=== PATIENT | male | born 1940 | race Caucasian/White ===

== ENCOUNTER 2016-12-02 17:52 | Observation (INO) | payer MEDICARE, OTHER ==
[2016-12-02] MEDS ORDERED: Sodium Chloride 0.9% 10 ML Syringe FLUSH PRN ×2 (18:07)
--- NOTE | 2016-12-02 18:17 | EDM.PDOC ---
[id number] Complaint: STROKE Time Seen by Provider: 12/02/16 18:00 Source of Information: Reports: Patient, Family, Old Records History Limitations: Reports: No Limitations - History of Present Illness INITIAL COMMENTS - FREE TEXT/NARRATIVE: Clint is retired, and tended his garden for most of the day in 88+ deg F temps. Family is concerned that he may not have consumed adequate fluids because he seems weak, confused at times, and reporting frontal headache. He went grocery shopping this pm, and returned too weak to carry the groceries into the house. There is a remote hx of HBP, Polio, and UE paresthesias medicated with Plavix over the past 7 years. Headache Pain Score (Numeric/FACES): 5 - Related Data Allergies Allergy/AdvReac Type Severity Reaction Status Date / Time No Known Allergies Allergy Verified 05/04/15 12:52 Home Meds: Home Meds Acetaminophen [Tylenol] 325 mg PO BEDTIME 05/04/15 [History] Aspirin 81 mg PO DAILY 05/04/15 [History] Calcium Carb & Citrate/Vit D3 [Calcium + D3 ER Tablet] 1 each PO DAILY 05/04/15 [History] Citalopram [Citalopram HBr] 20 mg PO BEDTIME 05/04/15 [History] Clopidogrel [Plavix] 75 mg PO DAILY 05/04/15 [History] Ferrous Sulfate 324 mg PO Q48H 05/04/15 [History] Pantoprazole [ProTONIX] 40 mg PO DAILY 05/04/15 [History] Simvastatin [Zocor] 40 mg PO BEDTIME 05/04/15 [History] Verapamil [Verelan] 120 mg PO DAILY 05/04/15 [History] Cyclobenzaprine [Flexeril] 10 mg PO DAILY PRN 12/03/16 [History] Docusate Sodium 750 mg PO BEDTIME 12/03/16 [History] Vitamin B12 6000mcg 6,000 mcg PO DAILY 12/03/16 [History] Losartan [Cozaar] 50 mg PO DAILY #30 tablet 12/04/16 [Rx] Past Medical History Cardiovascular History: Reports: Hypertension Other Gastrointestinal History: ACID REFLUX Other Musculoskeletal History: HX OF POLIO Social & Family History - Tobacco Use Smoking Status *Q: Never Smoker - Recreational Drug Use Recreational Drug Use: No ED ROS GENERAL - Review of Systems Review Of Systems: See Below Constitutional: Reports: Malaise, Weakness, Fatigue HEENT: Reports: No Symptoms Respiratory: Reports: Shortness of Breath (hx of chronic SOB on exertion related to polio) Cardiovascular: Reports: No Symptoms Endocrine: Reports: No Symptoms GI/Abdominal: Reports: No Symptoms : Reports: No Symptoms Musculoskeletal: Reports: Other (chronic weakness in the L lower leg) Skin: Reports: No Symptoms Neurological: Reports: Headache, Pre-Existing Deficit, Weakness (L lower leg) Psychiatric: Reports: No Symptoms Hematologic/Lymphatic: Reports: No Symptoms Immunologic: Reports: No Symptoms ED EXAM, GENERAL - Physical Exam Exam: See Below Exam Limited By: No Limitations General Appearance: Alert, WD/WN, No Apparent Distress, Lethargic, Thin Eye Exam: Bilateral Eye: Normal Inspection, PERRL Ears: Normal External Exam Nose: Normal Inspection Throat/Mouth: Normal Lips, Normal Teeth, Normal Gums, Other (xerostomia, hypophonia) Head: Normocephalic Neck: Normal Inspection, Supple, Non-Tender, Full Range of Motion Respiratory/Chest: Lungs Clear, No Accessory Muscle Use, Chest Non-Tender, Decreased Breath Sounds Cardiovascular: Regular Rate, Rhythm, No Murmur GI/Abdominal: Normal Bowel Sounds, Soft, Non-Tender, No Organomegaly, No Distention, No Mass (Male) Exam: Deferred Rectal (Males) Exam: Deferred Back Exam: Other (scoliosis) Extremities: Normal Range of Motion, Other (decreased muscle mass LLE>RLE) Neurological: Alert, CN II-XII Intact, Confused, Slow to Respond, Abnormal Gait Psychiatric: Flat Affect, Other (mood neutral) Skin Exam: Warm, Dry, Other (increased skin turgor) Lymphatic: No Adenopathy Course - Vital Signs Text/Narrative:: Following assession at the [facility] ED, lab work was obtained, and a peripheral IV was started in the LUE, and NS 1 L was administered over the next hour. He was administered Tylenol 650 mg po for headache sxs. Screening labs were pending at time of change of shift, medical care turned over to Dr Barreto on coming ED physician. Last Recorded V/S: Last Vital Signs Temp 36.3 C 12/04/16 07:27 Pulse 61 12/04/16 07:27 Resp 18 12/04/16 07:27 BP 173/75 H 12/04/16 04:00 Pulse Ox 93 L 12/04/16 07:27 - Orders/Labs/Meds Labs: Laboratory Tests 12/02/16 12/02/16 12/02/16 Range/Units 18:20 18:20 18:20 WBC 7.4 (4.5-12.0) X10-3/uL RBC 4.42 (4.30-5.75) x10(6)uL Hgb 14.1 (11.5-15.5) g/dL Hct 41.2 (30.0-51.3) % MCV 93.3 (80-96) fL MCH 32.0 (27.7-33.6) pg MCHC 34.3 (32.2-35.4) g/dL RDW 12.2 (11.5-15.5) % Plt Count 212 (125-369) X10(3)uL MPV 7.4 (7.4-10.4) fL Neut % (Auto) 80.2 (46-82) % Lymph % (Auto) 13.1 (13-37) % Nicol[place] % (Auto) 6.2 (4-12) % Eos % (Auto) 0 L (1.0-5.0) % Baso % (Auto) 0 (0-2) % Neut # (Auto) 5.9 (1.6-8.3) # Lymph # (Auto) 1.0 (0.6-5.0) # Nicol[place] # (Auto) 0.5 (0.0-1.3) # Eos # (Auto) 0.0 (0.0-0.8) # Baso # (Auto) 0.0 (0.0-0.2) # Sodium 137 (135-145) mmol/L Potassium 4.6 (3.5-5.3) mmol/L Chloride 101 (100-110) mmol/L Carbon Dioxide 28 (23-29) mmol/L BUN 14 (8-23) mg/dL Creatinine 0.6 (0.6-1.3) mg/dL Est Cr Clr Drug Dosing TNP Estimated GFR (MDRD) > 60 (>60) BUN/Creatinine Ratio 23.3 H (9-20) Glucose 106 (80-116) mg/dL Calcium 9.4 (8.6-10.2) mg/dL Total Bilirubin 0.8 (0.1-1.3) mg/dL AST 20 (5-27) IU/L ALT 23 (14-26) IU/L Alkaline Phosphatase 52 L (56-112) IU/L Troponin I < 0.01 L (0.02-0.06) NG/ML Total Protein 7.3 (6.0-8.0) g/dL Albumin 4.5 (3.2-4.6) g/dL Globulin 2.8 g/dL Albumin/Globulin Ratio 1.6 Meds: Medications Discontinued Medications Generic Name Dose Route Start Last Admin Trade Name Freq PRN Reason Stop Dose Admin Acetaminophen 650 mg 12/02/16 18:49 12/02/16 18:51 Tylenol PO 12/02/16 18:50 650 mg NOW ONE Administration Acetaminophen 650 mg 12/03/16 05:45 12/03/16 12:56 Tylenol PO 650 mg Q4H PRN Administration Headache Acetaminophen 325 mg 12/03/16 21:00 12/03/16 20:58 Tylenol PO 325 mg BEDTIME DIANE Administration Aspirin 81 mg 12/03/16 09:00 12/03/16 11:00 Halfprin PO 81 mg DAILY DIANE Administration Citalopram Hydrobromide 20 mg 12/03/16 21:00 12/03/16 20:57 Celexa PO 20 mg BEDTIME DIANE Administration Clopidogrel Bisulfate 75 mg 12/03/16 09:00 12/03/16 11:00 Plavix PO 75 mg DAILY DIANE Administration Cyclobenzaprine HCl 10 mg 12/03/16 10:57 Flexeril PO DAILY PRN MUSCLE SPASMS Docusate Sodium 750 mg 12/03/16 21:00 12/03/16 20:58 Dok PO 750 mg BEDTIME DIANE Administration Ferrous Sulfate 325 mg 12/04/16 09:00 Ferrous Sulfate PO Q48H DIANE Sodium Chloride 1,000 mls @ 999 mls/hr 12/02/16 18:15 12/03/16 18:25 Normal Saline IV 999 mls/hr ASDIRECTED DIANE Administration Sodium Chloride 1,000 mls @ 999 drops/hr 12/02/16 19:25 12/02/16 19:27 Normal Saline IV 12/03/16 10:25 999 drops/hr .BOLUS ONE Administration Sodium Chloride 1,000 mls @ 100 mls/hr 12/02/16 21:00 12/04/16 04:23 Normal Saline IV 100 mls/hr ASDIRECTED DIANE Administration Ketorolac Tromethamine 15 mg 12/02/16 20:52 12/03/16 02:41 Toradol IVPUSH 12/07/16 20:54 15 mg Q6H PRN Administration Headache Ketorolac Tromethamine 15 mg 12/03/16 07:31 12/03/16 12:57 Toradol IVPUSH 12/07/16 20:54 15 mg Q6H PRN Administration Headache Labetalol HCl 10 mg 12/02/16 20:29 12/02/16 20:47 Normodyne IVPUSH 12/02/16 20:30 20 mg ONETIME ONE Administration Protocol Labetalol HCl 20 mg 12/03/16 06:30 12/03/16 06:54 Normodyne IVPUSH 12/03/16 06:31 20 mg ONETIME ONE Administration Protocol Losartan Potassium 25 mg 12/03/16 10:30 12/03/16 11:00 Cozaar PO 25 mg DAILY DIANE Administration Calcium 600mg + D * 1 each 12/03/16 10:45 12/03/16 11:00 Ptom PO 1 each DAILY DIANE Administration Vitamin B12 6000mcg 1 each 12/03/16 09:00 12/03/16 11:00 PO 1 each DAILY DIANE Administration Pantoprazole Sodium 40 mg 12/03/16 11:00 12/04/16 05:28 Protonix PO 40 mg DAILY@0600 DIANE Administration Simvastatin 40 mg 12/03/16 21:00 12/03/16 20:59 Zocor PO 40 mg BEDTIME DIANE Administration Sodium Chloride 10 ml 12/02/16 18:07 12/02/16 18:09 Saline Flush FLUSH 10 ml ASDIRECTED PRN Administration Keep Vein Open Sodium Chloride 10 ml 12/02/16 18:07 Saline Flush FLUSH ASDIRECTED PRN Keep Vein Open Verapamil HCl 120 mg 12/03/16 10:45 12/03/16 11:00 Calan Sr PO 120 mg DAILY DIANE Administration Departure - Departure Time of Disposition: 21:00 Disposition: Refer to Observation Condition: Fair Clinical Impression: Labile hypertension Altered mental state Qualifiers: Altered mental status type: delirium Qualified Code(s): R41.0 - Disorientation , unspecified - Discharge Information - Problem List & Annotations (1) Altered mental state SNOMED Code(s): 958735228 Code(s): R41.82 - ALTERED MENTAL STATUS, UNSPECIFIED Status: Acute Qualifiers: Altered mental status type: delirium Qualified Code(s): R41.0 - Disorientation, unspecified (2) Labile hypertension SNOMED Code(s): 19841202196736282 Code(s): I10 - ESSENTIAL (PRIMARY) HYPERTENSION Status: Acute
[2016-12-02] MEDS: Sodium Chloride 0.9% 1,000 ML IV SCH ×3 (18:32→22:17)
[2016-12-02] MEDS ORDERED: Acetaminophen 325 MG Tab PO ONE (18:49)
[2016-12-02] MEDS ORDERED: Sodium Chloride 0.9% 1,000 ML IV ONE (19:25)
[2016-12-02] MEDS ORDERED: Labetalol 20 MG/4 ML Syringe IVPUSH ONE (20:29)
[2016-12-02] MEDS ORDERED: Ketorolac 30 MG/ML SDV IVPUSH PRN (20:52)
--- NOTE | 2016-12-03 02:59 | PCM.HP ---
H&P History of Present Illness - General Date of Service: 12/03/16 Source of Information: Patient History Limitations: Reports: No Limitations - History of Present Illness Initial Comments - Free Text/Narative: 76-year-old male who came in with headache and confusion. Jose was in his usual state of health until last evening, when he complained of a headache weakness and was noted to be slightly confused by family members. He had been out shopping, and out in the garden with an 88 F temperature. They think that he might also being dehydrated. Headache is severe,unrelenting with no improvement. Was insidious in onset. He has a history of hypertension that is previously well controlled. He was to [facility]. He complains of no fever chills chest pain nausea of vomiting. Headache Pain Score (Numeric/FACES): 5 - Related Data Allergies/Adverse Reactions: Allergies Allergy/AdvReac Type Severity Reaction Status Date / Time No Known Allergies Allergy Verified 05/04/15 12:52 Home Medications: Home Meds Acetaminophen [Tylenol] 325 mg PO ASDIRECTED PRN 05/04/15 [History] Aspirin 81 mg PO DAILY 05/04/15 [History] Calcium Carb & Citrate/Vit D3 [Calcium + D3 ER Tablet] 1 each PO DAILY 05/04/15 [History] Carbidopa/Levodopa [Sinemet 25-100 mg Tablet] 1 each PO BEDTIME 05/04/15 [ History] Citalopram [Celexa] 10 mg PO DAILY 05/04/15 [History] Clopidogrel [Plavix] 75 mg PO DAILY 05/04/15 [History] Cyclobenzaprine [Flexeril] 10 mg PO DAILY 05/04/15 [History] Ferrous Sulfate 324 mg PO DAILY 05/04/15 [History] Losartan [Cozaar] 25 mg PO DAILY 05/04/15 [History] Pantoprazole [Protonix] 40 mg PO DAILY 05/04/15 [History] QuiNINE [Qualaquin] 324 mg PO BEDTIME 05/04/15 [History] Simvastatin [Zocor] 80 mg PO BEDTIME 05/04/15 [History] Verapamil [Verapamil SR (24 Hr)] 120 mg PO DAILY 05/04/15 [History] Vit B12/Pyridoxine/Thiamine [Pv Neuro Jesús Tablet] 1 each PO DAILY 05/04/15 [ History] Past Medical History Cardiovascular History: Reports: Hypertension Gastrointestinal History: Reports: GERD, Other (See Below) Other Gastrointestinal History: ACID REFLUX Musculoskeletal History: Reports: Fracture, Other (See Below) Other Musculoskeletal History: HX OF POLIO Psychiatric History: Reports: Anxiety - Infectious Disease History Infectious Disease History: Reports: Chicken Pox, Measles, Shingles Social & Family History - Family History Musculoskeletal: Reports: Arthritis, Back pain, Chronic, Other (See Below) Other Musculoskeletal Family History: polio since 13 Dermatologic: Reports: Other (See Below) Other Dermatologic Family History: skin flakey and extremely dry to arms,legs, trunk entire body is affected - Tobacco Use Smoking Status *Q: Never Smoker Second Hand Smoke Exposure: No - Caffeine Use Caffeine Use: Reports: Coffee - Recreational Drug Use Recreational Drug Use: No H&P Review of Systems - Review of Systems: Review Of Systems: ROS reveals no pertinent complaints other than HPI. Exam - Exam Exam: See Below - Vital Signs Vital Signs: Last Vital Signs Temp 97.8 F 12/03/16 01:48 Pulse 63 12/03/16 02:44 Resp 20 12/03/16 01:48 BP 150/79 H 12/03/16 02:44 Pulse Ox 94 L 12/03/16 02:44 Weight: 62.188 kg - Exam General: Alert, Oriented, 4 HEENT: PERRLA, Hearing Intact, Mucosa Moist & [place], Nares Patent, Normal Nasal Septum, Posterior Pharynx Clear, Conjunctiva Clear, EOMI, EACs Clear, TMs Clear Neck: Supple, Trachea Midline, 2 Lungs: Clear to Auscultation, Normal Respiratory Effort Cardiovascular: Regular Rate, Regular Rhythm Abdomen: Normal Bowel Sounds, Soft (Male) Exam: No Hernia, Normal Inspection, Normal Prostate, Circumcised Rectal (Males) Exam: Normal Exam, Normal Rectal Tone, Prostate Normal Back Exam: Normal Inspection, Full Range of Motion, NT Extremities: 3, Normal Inspection, 10 Skin: Warm, Dry, Intact Neurological: Cranial Nerves Intact, Reflexes Equal Bilateral Neuro Extensive - Mental Status: Alert, Normal Mood/Affect, Normal Cognition, Disorientation to Time. No: Oriented x3, Memory Intact Neuro Extensive - Motor, Sensory, Reflexes: CN II-XII Intact, Normal Gait, Normal Reflexes Psychiatric: Alert, Normal Affect, Normal Mood. No: Agitated, Suicidal Ideation - Patient Data Lab Results last 24 hrs: Laboratory Results - last 24 hr 12/02/16 Range/Units 21:30 Urine Color Yellow (YELLOW) Urine Appearance Clear (CLEAR) Urine pH 5.0 (5.0-6.5) Ur Specific Burns 1.020 (1.010-1.025) Urine Protein Negative (NEGATIVE) mg/dL Urine Glucose (UA) Normal (NEGATIVE) mg/dL Urine Ketones 15 H (NEGATIVE) mg/dL Urine Occult Blood Negative (NEGATIVE) Urine Nitrite Negative (NEGATIVE) Urine Bilirubin Negative (NEGATIVE) Urine Urobilinogen Normal (NEGATIVE) mg/dL Ur Leukocyte Esterase Negative (NEGATIVE) Urine RBC 0-5 (0) Urine WBC 0-5 (0) Ur Squamous Epith Cells Occasional (NS,R,O) Urine Bacteria Rare H (NS) Result Diagrams: 12/02/16 18:20 12/02/16 18:20 Imaging Impressions last 24 hrs: CT head-No acute EKG INTERPRETATION Rhythm: NSR *Q Meaningful Use (ADM) - VTE *Q VTE Criteria *Q: - Stroke *Q Stroke Criteria *Q: - AMI *Q AMI Criteria *Q: - Problem List (1) Labile hypertension SNOMED Code(s): 10072306188049454 ICD Code: I10 - ESSENTIAL (PRIMARY) HYPERTENSION Status: Acute Current Visit: No (2) Headache SNOMED Code(s): 55436735 ICD Code: R51 - HEADACHE Status: Acute Current Visit: Yes Qualifiers: Headache type: other vascular headache Qualified Code(s): G44.1 - Vascular headache, not elsewhere classified (3) Heat exhaustion SNOMED Code(s): 07218404 ICD Code: T67.5XXA - HEAT EXHAUSTION, UNSPECIFIED, INITIAL ENCOUNTER Status : Acute Current Visit: Yes Qualifiers: Encounter type: initial encounter Qualified Code(s): T67.5XXA - Heat exhaustion, unspecified, initial encounter (4) Altered mental state SNOMED Code(s): 092088693 ICD Code: R41.82 - ALTERED MENTAL STATUS, UNSPECIFIED Status: Acute Current Visit: Yes Qualifiers: Altered mental status type: delirium Qualified Code(s): R41.0 - Disorientation, unspecified Problem List Initiated/Reviewed/Updated: Yes Orders Last 24hrs: Active Orders 24 hr Category Date Time Status Regular Diet [DIET] Diet 12/03/16 Breakfast Active Medication Orders Sodium Chloride (Normal Saline) 1,000 mls @ 999 mls/hr IV ASDIRECTED [facility] Last Admin: 12/02/16 19:27 Dose: 999 mls/hr Infusion: 12/02/16 19:27 Dose: 999 mls/hr Admin: 12/02/16 18:32 Dose: 999 mls/hr Sodium Chloride (Normal Saline) 1,000 mls @ 999 drops/hr IV .BOLUS ONE Stop: 12/03/16 10:25 Last Admin: 12/02/16 19:27 Dose: 999 drops/hr Sodium Chloride (Normal Saline) 1,000 mls @ 100 mls/hr IV ASDIRECTED [facility] Last Admin: 12/02/16 22:17 Dose: 100 mls/hr Ketorolac Tromethamine (Toradol) 15 mg IVPUSH Q6H PRN PRN Reason: Headache Stop: 12/07/16 20:54 Last Admin: 12/03/16 02:41 Dose: 15 mg Sodium Chloride (Saline Flush) 10 ml FLUSH ASDIRECTED PRN PRN Reason: Keep Vein Open Last Admin: 12/02/16 18:09 Dose: 10 ml Assessment/Plan Comment:: We'll admit the patient for rehydration. Also control his blood pressure. restart his BP meds,and use labetalol IV every 6 hours as required to keep his Systolic BP less than 180 mmHg. Toradol was given to try and control his headache. His CT was negative but if his symptoms headache persists we might either repeat another CT or obtain an MRI. Am hoping that this rehydration and once the pressure comes down he is mental status will clear up We'll continue to observe in observation care
[2016-12-03] MEDS ORDERED: Labetalol 20 MG/4 ML Syringe IVPUSH ONE (06:30)
[2016-12-03] MEDS: Acetaminophen 325 MG Tab PO PRN ×2 (06:52→12:56)
[2016-12-03] MEDS ORDERED: Ketorolac 15 MG/ML SDV IVPUSH PRN (07:31)
[2016-12-03] MEDS: Sodium Chloride 0.9% 1,000 ML IV SCH ×2 (08:07→18:25)
[2016-12-03] MEDS ORDERED: Aspirin 81 MG Tab.EC PO SCH (09:00)
[2016-12-03] MEDS ORDERED: VITAMIN B12 PO SCH (09:00)
[2016-12-03] MEDS ORDERED: Clopidogrel 75 MG Tab *PTOM PO SCH (09:00)
[2016-12-03] MEDS ORDERED: Losartan 25 MG Tab *PTOM PO SCH (10:30)
[2016-12-03] MEDS ORDERED: [UNRECOGNIZED DRUG - OTHER] PO SCH (10:45)
[2016-12-03] MEDS ORDERED: CALCIUM 600 MG PO SCH (10:45)
[2016-12-03] MEDS ORDERED: Ferrous Sulfate 325 MG Tab *PTOM PO SCH (10:45)
[2016-12-03] MEDS ORDERED: Verapamil 120 MG Tab.ER *PTOM PO SCH (10:45)
[2016-12-03] MEDS ORDERED: Cyclobenzaprine 10 MG Tab PO PRN (10:57)
[2016-12-03] MEDS: Pantoprazole 40 MG Tab.CR *PTOM PO SCH (11:00)
[2016-12-03] MEDS ORDERED: Citalopram 20 MG Tab *PTOM PO SCH (21:00)
[2016-12-03] MEDS ORDERED: Simvastatin 40 MG Tab *PTOM PO SCH (21:00)
[2016-12-03] MEDS ORDERED: DOCUSATE SODIUM 250 MG PO SCH (21:00)
[2016-12-03] MEDS ORDERED: QUININE 324 MG PO SCH (21:00)
[2016-12-03] MEDS ORDERED: LEVODOPA PO SCH (21:00)
[2016-12-03] MEDS ORDERED: Acetaminophen 325 MG Tab PO SCH (21:00)
[2016-12-03] MEDS ORDERED: CARBIDOPA PO SCH (21:00)
[2016-12-04 04:08] VITALS: BP 173/75
[2016-12-04] MEDS: Sodium Chloride 0.9% 1,000 ML IV SCH (04:23)
[2016-12-04] MEDS: Pantoprazole 40 MG Tab.CR *PTOM PO SCH (05:28)
--- NOTE | 2016-12-04 08:16 | PCM.PN ---
- General Info Date of Service: 12/04/16 Admission Dx/Problem (Free Text): Patient has no complaints today. He denies dizziness, headaches, fevers, fatigue, weakness, chest pain, shortness of breath. He says he feels normal. - Patient Data Vitals - most recent: Last Vital Signs Temp 97.3 F 12/04/16 07:27 Pulse 61 12/04/16 07:27 Resp 18 12/04/16 07:27 BP 173/75 H 12/04/16 04:00 Pulse Ox 93 L 12/04/16 07:27 Weight - most recent: 136 lb 12.8 oz I&O - last 24 hours: Intake & Output 12/03/16 12/04/16 12/04/16 22:59 06:59 14:59 Intake Total 1817 1065 Output Total 1150 Balance 1817 -85 Med Orders - Current: Current Medications Acetaminophen (Tylenol) 650 mg PO Q4H PRN PRN Reason: Headache Last Admin: 12/03/16 12:56 Dose: 650 mg Acetaminophen (Tylenol) 325 mg PO BEDTIME [facility] Last Admin: 12/03/16 20:58 Dose: 325 mg Aspirin (Halfprin) 81 mg PO DAILY [facility] Last Admin: 12/03/16 11:00 Dose: 81 mg Citalopram Hydrobromide (Celexa) 20 mg PO BEDTIME [facility] Last Admin: 12/03/16 20:57 Dose: 20 mg Clopidogrel Bisulfate (Plavix) 75 mg PO DAILY [facility] Last Admin: 12/03/16 11:00 Dose: 75 mg Cyclobenzaprine HCl (Flexeril) 10 mg PO DAILY PRN PRN Reason: MUSCLE SPASMS Docusate Sodium (Dok) 750 mg PO BEDTIME [facility] Last Admin: 12/03/16 20:58 Dose: 750 mg Ferrous Sulfate (Ferrous Sulfate) 325 mg PO Q48H [facility] Sodium Chloride (Normal Saline) 1,000 mls @ 999 mls/hr IV ASDIRECTED [facility] Last Admin: 12/03/16 18:25 Dose: 999 mls/hr Sodium Chloride (Normal Saline) 1,000 mls @ 100 mls/hr IV ASDIRECTED [facility] Last Admin: 12/04/16 04:23 Dose: 100 mls/hr Ketorolac Tromethamine (Toradol) 15 mg IVPUSH Q6H PRN PRN Reason: Headache Stop: 12/07/16 20:54 Last Admin: 12/03/16 12:57 Dose: 15 mg Losartan Potassium (Cozaar) 25 mg PO DAILY [facility] Last Admin: 12/03/16 11:00 Dose: 25 mg Calcium 600mg + D * (Ptom) 1 each PO DAILY [facility] Last Admin: 12/03/16 11:00 Dose: 1 each Vitamin B12 6000mcg 1 each PO DAILY [facility] Last Admin: 12/03/16 11:00 Dose: 1 each Pantoprazole Sodium (Protonix) 40 mg PO DAILY@0600 [facility] Last Admin: 12/04/16 05:28 Dose: 40 mg Simvastatin (Zocor) 40 mg PO BEDTIME [facility] Last Admin: 12/03/16 20:59 Dose: 40 mg Sodium Chloride (Saline Flush) 10 ml FLUSH ASDIRECTED PRN PRN Reason: Keep Vein Open Last Admin: 12/02/16 18:09 Dose: 10 ml Verapamil HCl (Calan Sr) 120 mg PO DAILY [facility] Last Admin: 12/03/16 11:00 Dose: 120 mg Discontinued Medications Acetaminophen (Tylenol) 650 mg PO NOW ONE Stop: 12/02/16 18:50 Last Admin: 12/02/16 18:51 Dose: 650 mg Sodium Chloride (Normal Saline) 1,000 mls @ 999 drops/hr IV .BOLUS ONE Stop: 12/03/16 10:25 Last Admin: 12/02/16 19:27 Dose: 999 drops/hr Ketorolac Tromethamine (Toradol) 15 mg IVPUSH Q6H PRN PRN Reason: Headache Stop: 12/07/16 20:54 Last Admin: 12/03/16 02:41 Dose: 15 mg Labetalol HCl (Normodyne) 10 mg IVPUSH ONETIME ONE PRN Reason: Protocol Stop: 12/02/16 20:30 Last Admin: 12/02/16 20:47 Dose: 20 mg Labetalol HCl (Normodyne) 20 mg IVPUSH ONETIME ONE PRN Reason: Protocol Stop: 12/03/16 06:31 Last Admin: 12/03/16 06:54 Dose: 20 mg Sodium Chloride (Saline Flush) 10 ml FLUSH ASDIRECTED PRN PRN Reason: Keep Vein Open - Exam General: alert, oriented, cooperative Neck: supple Lungs: Clear to auscultation, Normal respiratory effort Cardiovascular: Regular Rate, Regular Rhythm, No Murmurs Extremities: no edema Neurological: no new focal deficit Psy/Mental Status: alert, normal affect, normal mood - Problem List & Annotations (1) Altered mental state SNOMED Code(s): 458632465 Code(s): R41.82 - ALTERED MENTAL STATUS, UNSPECIFIED Status: Acute Current Visit: Yes Qualifiers: Altered mental status type: delirium Qualified Code(s): R41.0 - Disorientation, unspecified (2) Heat exhaustion SNOMED Code(s): 70774166 Code(s): T67.5XXA - HEAT EXHAUSTION, UNSPECIFIED, INITIAL ENCOUNTER Status : Acute Current Visit: Yes Qualifiers: Encounter type: initial encounter Qualified Code(s): T67.5XXA - Heat exhaustion, unspecified, initial encounter (3) Labile hypertension SNOMED Code(s): 26101202039043532 Code(s): I10 - ESSENTIAL (PRIMARY) HYPERTENSION Status: Acute Current Visit: No - Problem List Review Problem List Initiated/Reviewed/Updated: Yes - My Orders Last 24 Hours: My Active Orders 12/04/16 08:14 Ready for Discharge [RC] PER UNIT ROUTINE - Plan Plan:: 1. Discharge home. 2. Increase losartan from 25-50 mg a day. 3. Recheck with Dr. Lanre Chand in 7-10 days.
--- NOTE | 2016-12-04 08:23 | PCM.DCSUM1 ---
Discharge Summary - Hospital Course Free Text/Narrative:: Patient's CT scan was read as normal. He was admitted with aggressive rehydration, cooling, Toradol for headache and labetalol for his elevated blood pressure. Patients blood pressure improved as did his headache. By the morning of 12/04 he was completely asymptomatic. Suspect he had some heating session. Labs relatively normal. Blood pressure came down but still is high. I will increase his losartan from 25 mg to 50 mg. He will have his daughter checked his blood pressure to make sure it does not get too low. He will followup with Dr. Chand 7-10 days Brief History: 76-year-old male who came in with headache and confusion. Jose was in his usual state of health until last evening, when he complained of a headache weakness and was noted to be slightly confused by family members. He had been out shopping, and out in the garden with an 88 F temperature. They think that he might also being dehydrated. Headache is severe,unrelenting with no improvement. Was insidious in onset. He has a history of hypertension that is previously well controlled. He was to [facility]. He complains of no fever chills chest pain nausea of vomiting. - Discharge Data Discharge Date: 12/04/16 Discharge Disposition: Home, Self-Care 01 Condition: Good - Discharge Diagnosis/Problem(s) (1) Altered mental state SNOMED Code(s): 339077619 ICD Code: R41.82 - ALTERED MENTAL STATUS, UNSPECIFIED Status: Acute Current Visit: Yes Qualifiers: Altered mental status type: delirium Qualified Code(s): R41.0 - Disorientation, unspecified (2) Heat exhaustion SNOMED Code(s): 24660039 ICD Code: T67.5XXA - HEAT EXHAUSTION, UNSPECIFIED, INITIAL ENCOUNTER Status : Acute Current Visit: Yes Qualifiers: Encounter type: initial encounter Qualified Code(s): T67.5XXA - Heat exhaustion, unspecified, initial encounter (3) Labile hypertension SNOMED Code(s): 31757015772394752 ICD Code: I10 - ESSENTIAL (PRIMARY) HYPERTENSION Status: Acute Current Visit: No - Patient Instructions Diet: Heart Healthy Diet Activity: As Tolerated Driving: May Drive Today Showering/Bathing: May Shower Notify Provider of: Fever, Increased Pain, Swelling and Redness, Drainage, Nausea and/or Vomiting Other/Special Instructions: 1. Recheck with Dr. Lanre Chand and 7-10 days. - Discharge Plan Prescriptions/Med Rec: Losartan [Cozaar] 50 mg PO DAILY #30 tablet Home Medications: Home Meds Acetaminophen [Tylenol] 325 mg PO BEDTIME 05/04/15 [History] Aspirin 81 mg PO DAILY 05/04/15 [History] Calcium Carb & Citrate/Vit D3 [Calcium + D3 ER Tablet] 1 each PO DAILY 05/04/15 [History] Citalopram [Citalopram HBr] 20 mg PO BEDTIME 05/04/15 [History] Clopidogrel [Plavix] 75 mg PO DAILY 05/04/15 [History] Ferrous Sulfate 324 mg PO Q48H 05/04/15 [History] Pantoprazole [ProTONIX] 40 mg PO DAILY 05/04/15 [History] Simvastatin [Zocor] 40 mg PO BEDTIME 05/04/15 [History] Verapamil [Verelan] 120 mg PO DAILY 05/04/15 [History] Cyclobenzaprine [Flexeril] 10 mg PO DAILY PRN 12/03/16 [History] Docusate Sodium 750 mg PO BEDTIME 12/03/16 [History] Vitamin B12 6000mcg 6,000 mcg PO DAILY 12/03/16 [History] Losartan [Cozaar] 50 mg PO DAILY #30 tablet 12/04/16 [Rx] Forms: ED Department Discharge Referrals: Lanre Chand MD [Primary Care Provider] - - Discharge Summary/Plan Comment DC Time >30 min.: No - Patient Data Vitals - Most Recent: Last Vital Signs Temp 97.3 F 12/04/16 07:27 Pulse 61 12/04/16 07:27 Resp 18 12/04/16 07:27 BP 173/75 H 12/04/16 04:00 Pulse Ox 93 L 12/04/16 07:27 Weight - Most Recent: 136 lb 12.8 oz I&O - Last 24 hours: Intake & Output 12/03/16 12/04/16 12/04/16 22:59 06:59 14:59 Intake Total 1817 1065 Output Total 1150 Balance 1817 -85 Med Orders - Current: Current Medications Acetaminophen (Tylenol) 650 mg PO Q4H PRN PRN Reason: Headache Last Admin: 06/08/17 12:56 Dose: 650 mg Acetaminophen (Tylenol) 325 mg PO BEDTIME [facility] Last Admin: 12/03/16 20:58 Dose: 325 mg Aspirin (Halfprin) 81 mg PO DAILY [facility] Last Admin: 12/03/16 11:00 Dose: 81 mg Citalopram Hydrobromide (Celexa) 20 mg PO BEDTIME [facility] Last Admin: 12/03/16 20:57 Dose: 20 mg Clopidogrel Bisulfate (Plavix) 75 mg PO DAILY [facility] Last Admin: 12/03/16 11:00 Dose: 75 mg Cyclobenzaprine HCl (Flexeril) 10 mg PO DAILY PRN PRN Reason: MUSCLE SPASMS Docusate Sodium (Dok) 750 mg PO BEDTIME [facility] Last Admin: 12/03/16 20:58 Dose: 750 mg Ferrous Sulfate (Ferrous Sulfate) 325 mg PO Q48H [facility] Sodium Chloride (Normal Saline) 1,000 mls @ 999 mls/hr IV ASDIRECTED [facility] Last Admin: 12/03/16 18:25 Dose: 999 mls/hr Sodium Chloride (Normal Saline) 1,000 mls @ 100 mls/hr IV ASDIRECTED [facility] Last Admin: 12/04/16 04:23 Dose: 100 mls/hr Ketorolac Tromethamine (Toradol) 15 mg IVPUSH Q6H PRN PRN Reason: Headache Stop: 12/07/16 20:54 Last Admin: 12/03/16 12:57 Dose: 15 mg Losartan Potassium (Cozaar) 25 mg PO DAILY [facility] Last Admin: 12/03/16 11:00 Dose: 25 mg Calcium 600mg + D * (Ptom) 1 each PO DAILY [facility] Last Admin: 12/03/16 11:00 Dose: 1 each Vitamin B12 6000mcg 1 each PO DAILY [facility] Last Admin: 12/03/16 11:00 Dose: 1 each Pantoprazole Sodium (Protonix) 40 mg PO DAILY@0600 [facility] Last Admin: 12/04/16 05:28 Dose: 40 mg Simvastatin (Zocor) 40 mg PO BEDTIME [facility] Last Admin: 12/03/16 20:59 Dose: 40 mg Sodium Chloride (Saline Flush) 10 ml FLUSH ASDIRECTED PRN PRN Reason: Keep Vein Open Last Admin: 12/02/16 18:09 Dose: 10 ml Verapamil HCl (Calan Sr) 120 mg PO DAILY [facility] Last Admin: 12/03/16 11:00 Dose: 120 mg Discontinued Medications Acetaminophen (Tylenol) 650 mg PO NOW ONE Stop: 12/02/16 18:50 Last Admin: 12/02/16 18:51 Dose: 650 mg Sodium Chloride (Normal Saline) 1,000 mls @ 999 drops/hr IV .BOLUS ONE Stop: 12/03/16 10:25 Last Admin: 12/02/16 19:27 Dose: 999 drops/hr Ketorolac Tromethamine (Toradol) 15 mg IVPUSH Q6H PRN PRN Reason: Headache Stop: 12/07/16 20:54 Last Admin: 12/03/16 02:41 Dose: 15 mg Labetalol HCl (Normodyne) 10 mg IVPUSH ONETIME ONE PRN Reason: Protocol Stop: 12/02/16 20:30 Last Admin: 12/02/16 20:47 Dose: 20 mg Labetalol HCl (Normodyne) 20 mg IVPUSH ONETIME ONE PRN Reason: Protocol Stop: 12/03/16 06:31 Last Admin: 12/03/16 06:54 Dose: 20 mg Sodium Chloride (Saline Flush) 10 ml FLUSH ASDIRECTED PRN PRN Reason: Keep Vein Open *Q Meaningful Use (DIS) - VTE *Q VTE Criteria *Q: - Stroke *Q Stroke Criteria *Q: - AMI *Q AMI Criteria *Q:
[2016-12-04] MEDS ORDERED: Ferrous Sulfate 325 MG Tab *PTOM PO SCH (09:00)
== END 2016-12-04 13:00 | disposition home or self-care (01) ==
LOC: FB.ED 17:52 → FB.MS 20:55
PROVIDERS: ADMIT Family Medicine; ATTEND Family Medicine
DX: R41.0 Disorientation, unspecified (principal); T67.5XXA Heat exhaustion, unspecified, initial encounter; I10 Essential (primary) hypertension; G44.1 Vascular headache, not elsewhere classified; Z79.82 Long term (current) use of aspirin; Z79.899 Other long term (current) drug therapy; K21.9 Gastro-esophageal reflux disease without esophagitis; F41.9 Anxiety disorder, unspecified
CPT/HCPCS: 36415; 70450; 80053; 81001; 84484; 85025; 93005; 96361; 96374; 96375; 96376; 99285; A9270; G0378; J1885; J7040; J7050; 99217; 99218

== ENCOUNTER 2018-11-23 07:22 | Inpatient (IN) | payer MEDICARE ==
[2018-11-23] MEDS ORDERED: Sodium Chloride 0.9% 500 ML IV ONE (07:52)
[2018-11-23] MEDS ORDERED: Albuterol/Ipratropium 3.0-0.5 MG/3 ML Neb Soln NEB ONE (08:01)
--- NOTE | 2018-11-23 08:04 | EDM.PDOC ---
ED HPI GENERAL MEDICAL PROBLEM - General Chief Complaint: Respiratory Problem Stated Complaint: SOB,WEAKNESS Time Seen by Provider: 11/23/18 08:02 Source of Information: Reports: Patient History Limitations: Reports: No Limitations - History of Present Illness INITIAL COMMENTS - FREE TEXT/NARRATIVE: Presents with cough, sob, generalized weakness and dizziness x 2-3 days. Had chills yesterday, but no fever. Denies chest pain at this time. No h/o CAD. Severity: Moderate Associated Symptoms: Reports: Shortness of Breath, Other (Nausea) Generalized Pain Score (Numeric/FACES): 4 - Related Data Allergies Allergy/AdvReac Type Severity Reaction Status Date / Time No Known Allergies Allergy Verified 11/23/18 07:42 Home Meds: Home Meds Acetaminophen [Tylenol] 325 mg PO BEDTIME 05/04/15 [History] Aspirin 81 mg PO DAILY 05/04/15 [History] Calcium Carb & Citrate/Vit D3 [Calcium + D3 ER Tablet] 1 each PO DAILY 05/04/15 [History] Clopidogrel [Plavix] 75 mg PO DAILY 05/04/15 [History] Ferrous Sulfate 324 mg PO Q48H 05/04/15 [History] Pantoprazole [ProTONIX] 40 mg PO DAILY 05/04/15 [History] Simvastatin [Zocor] 40 mg PO BEDTIME 05/04/15 [History] Verapamil [Verelan] 120 mg PO DAILY 05/04/15 [History] Docusate Sodium 750 mg PO BEDTIME 12/03/16 [History] Vitamin B12 6000mcg 6,000 mcg PO DAILY 12/03/16 [History] Losartan [Cozaar] 50 mg PO DAILY #30 tablet 12/04/16 [Rx] Albuterol [Ventolin HFA] 1 - 2 puff INH Q4H PRN 11/23/18 [History] Gabapentin [Neurontin] 300 mg PO BEDTIME 11/23/18 [History] Sertraline [Zoloft] 50 mg PO DAILY 11/23/18 [History] Past Medical History Cardiovascular History: Reports: Hypertension. Denies: CAD Respiratory History: Denies: Asthma, COPD Gastrointestinal History: Reports: GERD, Other (See Below) Other Gastrointestinal History: ACID REFLUX Musculoskeletal History: Reports: Arthritis, Fracture, Other (See Below) Other Musculoskeletal History: HX OF POLIO Psychiatric History: Reports: Anxiety - Infectious Disease History Infectious Disease History: Reports: Chicken Pox, Measles, Shingles Social & Family History - Family History Musculoskeletal: Reports: Arthritis, Back pain, Chronic, Other (See Below) Other Musculoskeletal Family History: polio since 13 Dermatologic: Reports: Other (See Below) Other Dermatologic Family History: skin flakey and extremely dry to arms,legs, trunk entire body is affected - Tobacco Use Smoking Status *Q: Never Smoker - Caffeine Use Caffeine Use: Reports: Coffee - Recreational Drug Use Recreational Drug Use: No - Living Situation & Occupation Living situation: Reports: Alone ED ROS GENERAL - Review of Systems Review Of Systems: ROS reveals no pertinent complaints other than HPI. ED EXAM, GENERAL - Physical Exam Exam: See Below Exam Limited By: No Limitations General Appearance: Alert, WD/WN, No Apparent Distress Ears: Normal External Exam Nose: Normal Inspection Throat/Mouth: No Airway Compromise, Other (oropharynx dry) Head: Atraumatic, Normocephalic Neck: Full Range of Motion Respiratory/Chest: No Respiratory Distress, Rhonchi Cardiovascular: Regular Rate, Rhythm, No Murmur GI/Abdominal: Normal Bowel Sounds, Soft, Non-Tender Extremities: Normal Range of Motion, Non-Tender Neurological: Alert, Normal Cognition, No Motor/Sensory Deficits Skin Exam: Warm, Dry, Intact EKG INTERPRETATION EKG Date: 11/23/18 Time: 07:52 Rhythm: NSR Rate (Beats/Min): 80 [place]: LAD-Left [place] Deviation P-Wave: Present QRS: Other (LVH) ST-T: Elevated (anterior, due to LVH (no change 12/12/16)) QT: Normal Comparison: No Change Course - Vital Signs Last Recorded V/S: Last Vital Signs Temp 36.4 C 11/23/18 07:22 Pulse 82 11/23/18 09:07 Resp 18 11/23/18 09:07 BP 139/62 11/23/18 09:07 Pulse Ox 95 11/23/18 09:07 Vital Signs - 24 hr 11/23/18 11/23/18 11/23/18 07:22 08:18 08:22 Temperature [ 36.4 C Oral] Pulse, 91 72 87 Peripheral [ Right Radial] Respiratory 22 H 20 Rate Blood Pressure 98/66 105/56 L [Left Upper Arm ] O2 Sat by Pulse 86 L 95 Oximetry O2 Sat by Pulse 92 L 95 91 L Oximetry [ Nasal Cannula] 11/23/18 09:07 Temperature [ Oral] Pulse, 82 Peripheral [ Right Radial] Respiratory 18 Rate Blood Pressure 139/62 [Left Upper Arm ] O2 Sat by Pulse 94 L Oximetry O2 Sat by Pulse 95 Oximetry [ Nasal Cannula] - Orders/Labs/Meds Orders: Active Orders 24 hr Category Date Time Status Admission Status [Patient Status] [ADT] Routine ADT 11/23/18 10:01 Active EKG Documentation Completion [RC] ASDIRECTED Care 11/23/18 07:54 Active RT Aerosol Therapy [RC] ASDIRECTED Care 11/23/18 08:01 Active Ang Chest [CT] Stat Exams 11/23/18 09:28 Taken CXR [Chest 1V Frontal] [CR] Stat Exams 11/23/18 07:53 Taken CULTURE BLOOD [BC] Urgent Lab 11/23/18 08:05 Received CULTURE BLOOD [BC] Urgent Lab 11/23/18 08:10 Received UA W/MICROSCOPIC [URIN] Stat Lab 11/23/18 Ordered Sodium Chloride 0.9% [Normal Saline] 1,000 ml Med 11/23/18 09:15 Active IV ASDIRECTED Sodium Chloride 0.9% [Saline Flush] Med 11/23/18 07:52 Active 10 ml FLUSH ASDIRECTED PRN Blood Culture x2 Reflex Set [OM.PC] Urgent Oth 11/23/18 07:53 Ordered Saline Lock Insert [OM.PC] Routine Oth 11/23/18 07:52 Ordered Code Status [Resuscitation Status] Stat Resus Stat 11/23/18 08:00 Ordered EKG 12 Lead [EK] Stat Ther 11/23/18 07:54 Ordered Medication Orders Sodium Chloride (Normal Saline) 1,000 mls @ 100 mls/hr IV ASDIRECTED DIANE Last Admin: 11/23/18 09:07 Dose: 100 mls/hr Sodium Chloride (Saline Flush) 10 ml FLUSH ASDIRECTED PRN PRN Reason: Keep Vein Open Last Admin: 11/23/18 08:08 Dose: 10 ml Labs: Laboratory Tests 11/23/18 11/23/18 11/23/18 Range/Units 08:10 08:10 08:10 WBC 10.8 (4.5-12.0) X10-3/uL RBC 4.45 (4.30-5.75) x10(6)uL Hgb 14.0 (13.5-17.8) g/dL Hct 41.7 (30.0-51.3) % MCV 93.7 (80-96) fL MCH 31.4 (27.7-33.6) pg MCHC 33.6 (32.2-35.4) g/dL RDW 12.9 (11.5-15.5) % Plt Count 221 (125-369) X10(3)uL MPV 7.1 L (7.4-10.4) fL Add Manual Diff Yes Neutrophils % (Manual) 80 (46-82) % Band Neutrophils % 3 (0-6) % Lymphocytes % (Manual) 9 L (13-37) % Monocytes % (Manual) 8 (4-12) % PT 10.3 (8.7-11.1) INR 1.06 (0.89-1.13) D-Dimer, Quantitative (0.0-0.59) mg/LFEU Sodium 139 (135-145) mmol/L Potassium 4.1 (3.5-5.3) mmol/L Chloride 102 (100-110) mmol/L Carbon Dioxide 29 (21-32) mmol/L BUN 15 (7-18) mg/dL Creatinine 0.7 (0.70-1.30) mg/dL Est Cr Clr Drug Dosing 76.14 mL/min Estimated GFR (MDRD) > 60 (>60) BUN/Creatinine Ratio 21.4 H (9-20) Glucose 87 (80-116) mg/dL Lactic Acid (0.4-2.2) mmol/L Calcium 9.1 (8.6-10.2) mg/dL Total Bilirubin 1.0 (0.1-1.3) mg/dL AST 30 H (5-25) IU/L ALT 30 (12-36) U/L Alkaline Phosphatase 68 (56-112) IU/L Troponin I (<0.017-0.056) ng/mL Total Protein 6.7 (6.0-8.0) g/dL Albumin 3.3 (3.2-4.6) g/dL Globulin 3.4 g/dL Albumin/Globulin Ratio 1.0 11/23/18 11/23/18 11/23/18 Range/Units 08:10 08:10 08:10 WBC (4.5-12.0) X10-3/uL RBC (4.30-5.75) x10(6)uL Hgb (13.5-17.8) g/dL Hct (30.0-51.3) % MCV (80-96) fL MCH (27.7-33.6) pg MCHC (32.2-35.4) g/dL RDW (11.5-15.5) % Plt Count (125-369) X10(3)uL MPV (7.4-10.4) fL Add Manual Diff Neutrophils % (Manual) (46-82) % Band Neutrophils % (0-6) % Lymphocytes % (Manual) (13-37) % Monocytes % (Manual) (4-12) % PT (8.7-11.1) INR (0.89-1.13) D-Dimer, Quantitative 0.91 H (0.0-0.59) mg/LFEU Sodium (135-145) mmol/L Potassium (3.5-5.3) mmol/L Chloride (100-110) mmol/L Carbon Dioxide (21-32) mmol/L BUN (7-18) mg/dL Creatinine (0.70-1.30) mg/dL Est Cr Clr Drug Dosing mL/min Estimated GFR (MDRD) (>60) BUN/Creatinine Ratio (9-20) Glucose (80-116) mg/dL Lactic Acid 1.0 (0.4-2.2) mmol/L Calcium (8.6-10.2) mg/dL Total Bilirubin (0.1-1.3) mg/dL AST (5-25) IU/L ALT (12-36) U/L Alkaline Phosphatase (56-112) IU/L Troponin I < 0.017 L (<0.017-0.056) ng/mL Total Protein (6.0-8.0) g/dL Albumin (3.2-4.6) g/dL Globulin g/dL Albumin/Globulin Ratio Meds: Medications Generic Name Dose Route Start Last Admin Trade Name Freq PRN Reason Stop Dose Admin Sodium Chloride 1,000 mls @ 100 mls/hr 11/23/18 09:15 11/23/18 09:07 Normal Saline IV 100 mls/hr ASDIRECTED DIANE Administration Sodium Chloride 10 ml 11/23/18 07:52 11/23/18 08:08 Saline Flush FLUSH 10 ml ASDIRECTED PRN Administration Keep Vein Open Discontinued Medications Generic Name Dose Route Start Last Admin Trade Name Freq PRN Reason Stop Dose Admin Albuterol/Ipratropium 3 ml 11/23/18 08:01 11/23/18 08:11 Duoneb 3.0-0.5 Mg/3 Ml NEB 11/23/18 08:02 3 ml ONETIME ONE Administration Sodium Chloride 500 mls @ 500 mls/hr 11/23/18 07:52 11/23/18 08:08 Normal Saline IV 11/23/18 08:51 500 mls/hr .BOLUS ONE Administration Iopamidol 75 ml 11/23/18 09:23 11/23/18 09:24 Isovue-370 (76%) IV 11/23/18 09:24 75 ml ONETIME ONE Administration - Radiology Interpretation Free Text/Narrative:: CTA Chest: Multifocal pneumonia, no pulmonary emboli (per Dr. Wilson). - Re-Assessments/Exams Free Text/Narrative Re-Assessment/Exam: 11/23/18 10:10 BP improved to 139/62 after 500ml NS bolus. Sa02 improved to 91% RA after Duoneb. 11/23/18 10:12 Dr. Solorio agrees to admit patient to [facility]. Departure - Departure Time of Disposition: 10:11 Disposition: Admitted As Inpatient 64 Condition: Fair Clinical Impression: Multifocal pneumonia Dyspnea Qualifiers: Dyspnea type: shortness of breath Qualified Code(s): R06.02 - Shortness of breath; R06.00 - Dyspnea, unspecified; R06.01 - Orthopnea - Discharge Information *PRESCRIPTION DRUG MONITORING PROGRAM REVIEWED*: No *COPY OF PRESCRIPTION DRUG MONITORING REPORT IN PATIENT CASE: Not Applicable Referrals: Lanre Chand MD [Primary Care Provider] - Forms: ED Department Discharge - My Orders Last 24 Hours: My Active Orders 11/23/18 UA W/MICROSCOPIC [URIN] Stat 11/23/18 07:52 Sodium Chloride 0.9% [Saline Flush] 10 ml FLUSH ASDIRECTED PRN Saline Lock Insert [OM.PC] Routine 11/23/18 07:53 CXR [Chest 1V Frontal] [CR] Stat Blood Culture x2 Reflex Set [OM.PC] Urgent 11/23/18 07:54 EKG Documentation Completion [RC] ASDIRECTED EKG 12 Lead [EK] Stat 11/23/18 08:00 Code Status [Resuscitation Status] Stat 11/23/18 08:01 RT Aerosol Therapy [RC] ASDIRECTED 11/23/18 08:05 CULTURE BLOOD [BC] Urgent 11/23/18 08:10 CULTURE BLOOD [BC] Urgent 11/23/18 09:15 Sodium Chloride 0.9% [Normal Saline] 1,000 ml IV ASDIRECTED 11/23/18 09:28 Ang Chest [CT] Stat 11/23/18 10:01 Admission Status [Patient Status] [ADT] Routine - Assessment/Plan Last 24 Hours: My Active Orders 11/23/18 UA W/MICROSCOPIC [URIN] Stat 11/23/18 07:52 Sodium Chloride 0.9% [Saline Flush] 10 ml FLUSH ASDIRECTED PRN Saline Lock Insert [OM.PC] Routine 11/23/18 07:53 CXR [Chest 1V Frontal] [CR] Stat Blood Culture x2 Reflex Set [OM.PC] Urgent 11/23/18 07:54 EKG Documentation Completion [RC] ASDIRECTED EKG 12 Lead [EK] Stat 11/23/18 08:00 Code Status [Resuscitation Status] Stat 11/23/18 08:01 RT Aerosol Therapy [RC] ASDIRECTED 11/23/18 08:05 CULTURE BLOOD [BC] Urgent 11/23/18 08:10 CULTURE BLOOD [BC] Urgent 11/23/18 09:15 Sodium Chloride 0.9% [Normal Saline] 1,000 ml IV ASDIRECTED 11/23/18 09:28 Ang Chest [CT] Stat 11/23/18 10:01 Admission Status [Patient Status] [ADT] Routine
[2018-11-23] MEDS: Sodium Chloride 0.9% 10 ML Syringe FLUSH PRN (08:08)
[2018-11-23] MEDS ORDERED: Sodium Chloride 0.9% 1,000 ML IV SCH (09:15)
[2018-11-23] MEDS ORDERED: Iopamidol 755 Mg/ML 75 ML Bottle IV ONE (09:23)
[2018-11-23] MEDS ORDERED: Albuterol 0.083% 2.5 MG/3 ML Neb Soln NEB PRN (10:14)
[2018-11-23] MEDS ORDERED: Sodium Chloride 0.9% 10 ML Syringe FLUSH PRN (10:14)
[2018-11-23] MEDS ORDERED: cefTRIAXone 1 GM in Sodium Chloride 0.9% 50 ML IV SCH (10:15)
[2018-11-23] MEDS ORDERED: cefTRIAXone 1 GM Vial IVPUSH SCH (10:30)
--- NOTE | 2018-11-23 10:37 | CR ---
INDICATION: Shortness of breath. CHEST: A single AP upright portable view of the chest revealed infiltration at the mid to lower lung field on the left and at the right lung base, which may be on the basis of pneumonia, although some fibrosis may also be present. The heart appeared enlarged. Upper lung field pulmonary vasculature is minimally prominent, raising question of minimal degree of pulmonary vascular congestion. Dextroconcave rotoscoliosis of the lumbar spine is suggested with tilt of the thoracic spine to the right. IMPRESSION: 1. Probable bilateral pneumonia; however, a portion of the changes may be on the basis of fibrosis. 2. ASHD, cardiomegaly, possible mild pulmonary vascular congestion - mild CHF. MTDD
--- NOTE | 2018-11-23 10:51 | CT ---
INDICATION: Shortness of breath, PE protocol, elevated D-dimer. COMPUTERIZED TOMOGRAPHY ANGIOGRAPHY OF THE CHEST WITH CONTRAST: Spiral 1.25 mm axial sections were obtained through the chest with 75 mL Isovue 370 at 3 mL/ second with sagittal and coronal reconstructions, 11/23/18, and compared with . Total exam DLP = 310.14 mGy-cm. No evidence of pulmonary artery embolus could be identified. Calcifications are noted in the aorta in the arch, descending portion, abdominal portion, and in the celiac axis, superior mesenteric artery, and origin of the renal arteries, as well as proximal left renal artery. Coronary artery calcifications are also noted with cardiac enlargement. A mild degree of pulmonary vascular congestion may be present. Fairly extensive infiltration is noted with fairly dense consolidation throughout the left lower lobe, sparing a few areas at the base and apex of the lung. Relatively minimal infiltrate is noted focally in the right apical lung, as well as in the middle lobe, with a moderate amount of patchily consolidating infiltration in the right lower lobe. This appearance of areas of infiltration may be on the basis of aspiration pneumonia but should be correlated clinically. No definite nodular masses were identified. The gallbladder appeared somewhat distended, but this may be physiologic. A low density lesion is noted in the upper pole lateral cortex of the right kidney, which may represent a cyst but is not optimally viewed on this examination. No definite mediastinal mass is identified. No pericardial effusion was seen. Mild mediastinal lymphadenopathy is noted, which is probably reactive to pneumonia. Pleuritis is also suggested on the left with small pleural effusion noted on the left. Colonic interposition is noted on the right. No obstructive process was suggested at this time, however. IMPRESSION: 1. No evidence of PE, as on previous CT scan of 08/10/11. 2. Bilateral pneumonia but most extensive by far in the left lower lobe, patchily consolidating with areas of heavy consolidation. With multiple areas of infiltrate, the possibility of aspiration pneumonia would be a consideration but should be correlated clinically. 3. ASHD with cardiomegaly, possible mild pulmonary vascular congestion. 4. ASD. 5. Probable renal cyst, unable to be adequately determined, due to PE study. Report was called to Dr. Marquez at 0958 hours on 11/23/18. [facility]
[2018-11-23] MEDS: Albuterol/Ipratropium 3.0-0.5 MG/3 ML Neb Soln NEB SCH ×3 (12:53→20:47)
[2018-11-23] MEDS: Azithromycin 500 MG in Sodium Chloride 0.9% 250 ML IV SCH (12:57)
--- NOTE | 2018-11-23 16:44 | PCM.HP ---
H&P History of Present Illness - General Date of Service: 11/23/18 Admit Problem/Dx: Admission Diagnosis/Problem Admission Diagnosis/Problem Pneumonia Source of Information: Patient, Old Records History Limitations: Reports: No Limitations - History of Present Illness Initial Comments - Free Text/Narative: Isac is an 78-year-old male who came in because of shortness of breath difficulty breathing.The symptoms started 2 days ago and have progressively gotten worse, to the point that he was unable to sleep overnight. He also had low-grade fever and chest pain. He has a history of severe COPD, hypertension, CAD, TED that are previously stable. He does endorse a previous history of difficulty with swallowing and has a history of GERD with esophagitis. In the ER ,he was found to be slightly hypotensive and hypoxic needing oxygen supplementation and fluid resuscitation. CT of the chest showed multifocal pneumonia possibly aspiration in type Generalized Pain Score (Numeric/FACES): 4 - Related Data Allergies/Adverse Reactions: Allergies Allergy/AdvReac Type Severity Reaction Status Date / Time No Known Allergies Allergy Verified 11/23/18 07:42 Home Medications: Home Meds Acetaminophen [Tylenol] 325 mg PO BEDTIME 05/04/15 [History] Aspirin 81 mg PO DAILY 05/04/15 [History] Calcium Carb & Citrate/Vit D3 [Calcium + D3 ER Tablet] 1 each PO DAILY 05/04/15 [History] Clopidogrel [Plavix] 75 mg PO DAILY 05/04/15 [History] Ferrous Sulfate 324 mg PO Q48H 05/04/15 [History] Pantoprazole [ProTONIX] 40 mg PO DAILY 05/04/15 [History] Simvastatin [Zocor] 40 mg PO BEDTIME 05/04/15 [History] Docusate Sodium 750 mg PO BEDTIME 12/03/16 [History] Vitamin B12 6000mcg 6,000 mcg PO DAILY 12/03/16 [History] Losartan [Cozaar] 50 mg PO DAILY #30 tablet 12/04/16 [Rx] Albuterol [Ventolin HFA] 1 - 2 puff INH Q4H PRN 11/23/18 [History] Gabapentin [Neurontin] 300 mg PO BEDTIME 11/23/18 [History] Sertraline [Zoloft] 50 mg PO DAILY 11/23/18 [History] Verapamil HCl [Verapamil ER] 120 mg PO DAILY 11/23/18 [History] Past Medical History Cardiovascular History: Reports: Hypertension Respiratory History: Reports: SOB Other Respiratory History: states has had home o2 before at hs. Unable to tell nurse why. Gastrointestinal History: Reports: GERD, Other (See Below) Other Gastrointestinal History: ACID REFLUX Musculoskeletal History: Reports: Arthritis, Fracture, Other (See Below) Other Musculoskeletal History: HX OF POLIO Psychiatric History: Reports: Anxiety - Infectious Disease History Infectious Disease History: Reports: Chicken Pox, Measles, Shingles Social & Family History - Family History Family Medical History: Noncontributory Musculoskeletal: Reports: Arthritis, Back pain, Chronic, Other (See Below) Other Musculoskeletal Family History: polio since 13 Dermatologic: Reports: Other (See Below) Other Dermatologic Family History: skin flakey and extremely dry to arms,legs, trunk entire body is affected - Tobacco Use Smoking Status *Q: Never Smoker - Caffeine Use Caffeine Use: Reports: Coffee - Recreational Drug Use Recreational Drug Use: No - Living Situation & Occupation Living situation: Reports: Alone H&P Review of Systems - Review of Systems: Review Of Systems: ROS reveals no pertinent complaints other than HPI. Exam - Exam Exam: See Below - Vital Signs Vital Signs: Last Vital Signs Temp 99.6 F 11/23/18 16:00 Pulse 74 11/23/18 16:00 Resp 17 11/23/18 16:00 BP 117/63 11/23/18 16:00 Pulse Ox 94 L 11/23/18 16:00 Weight: 63.957 kg - Exam Quality Assessment: Supplemental Oxygen General: Mild Distress HEENT: PERRLA, Hearing Intact, Mucosa Moist & [place], Nares Patent, Normal Nasal Septum, Posterior Pharynx Clear, Conjunctiva Clear, EOMI, EACs Clear, TMs Clear Neck: Supple, Trachea Midline, 2 Lungs: Rales, Rhonchi Cardiovascular: Regular Rate, Systolic Murmur GI/Abdominal Exam: Normal Bowel Sounds, Soft, Non-Tender, No Organomegaly, No Distention, No Abnormal Bruit, No Mass, Pelvis Stable (Male) Exam: Deferred Rectal (Males) Exam: Deferred Back Exam: Normal Inspection, Full Range of Motion, NT Extremities: Normal Inspection, Normal Range of Motion, Non-Tender, No Pedal Edema, Normal Capillary Refill Skin: Warm, Dry, Intact Neurological: Cranial Nerves Intact, Reflexes Equal Bilateral Neuro Extensive - Mental Status: Alert, Oriented x3, Normal Mood/Affect, Normal Cognition Neuro Extensive - Motor, Sensory, Reflexes: CN II-XII Intact, Normal Gait, Normal Reflexes Psychiatric: Alert, Normal Affect, Normal Mood - Patient Data Lab Results Last 24 hrs: Laboratory Results - last 24 hr 11/23/18 11/23/18 11/23/18 Range/Units 08:10 08:10 08:10 WBC 10.8 (4.5-12.0) X10-3/uL RBC 4.45 (4.30-5.75) x10(6)uL Hgb 14.0 (13.5-17.8) g/dL Hct 41.7 (30.0-51.3) % MCV 93.7 (80-96) fL MCH 31.4 (27.7-33.6) pg MCHC 33.6 (32.2-35.4) g/dL RDW 12.9 (11.5-15.5) % Plt Count 221 (125-369) X10(3)uL MPV 7.1 L (7.4-10.4) fL Add Manual Diff Yes Neutrophils % (Manual) 80 (46-82) % Band Neutrophils % 3 (0-6) % Lymphocytes % (Manual) 9 L (13-37) % Monocytes % (Manual) 8 (4-12) % PT 10.3 (8.7-11.1) INR 1.06 (0.89-1.13) D-Dimer, Quantitative (0.0-0.59) mg/LFEU Sodium 139 (135-145) mmol/L Potassium 4.1 (3.5-5.3) mmol/L Chloride 102 (100-110) mmol/L Carbon Dioxide 29 (21-32) mmol/L BUN 15 (7-18) mg/dL Creatinine 0.7 (0.70-1.30) mg/dL Est Cr Clr Drug Dosing 76.14 mL/min Estimated GFR (MDRD) > 60 (>60) BUN/Creatinine Ratio 21.4 H (9-20) Glucose 87 (80-116) mg/dL Lactic Acid (0.4-2.2) mmol/L Calcium 9.1 (8.6-10.2) mg/dL Total Bilirubin 1.0 (0.1-1.3) mg/dL AST 30 H (5-25) IU/L ALT 30 (12-36) U/L Alkaline Phosphatase 68 (56-112) IU/L Troponin I (<0.017-0.056) ng/mL Total Protein 6.7 (6.0-8.0) g/dL Albumin 3.3 (3.2-4.6) g/dL Globulin 3.4 g/dL Albumin/Globulin Ratio 1.0 Urine Color (YELLOW) Urine Appearance (CLEAR) Urine pH (5.0-6.5) Ur Specific [place] (1.010-1.025) Urine Protein (NEGATIVE) mg/dL Urine Glucose (UA) (NORMAL) mg/dL Urine Ketones (NEGATIVE) mg/dL Urine Occult Blood (NEGATIVE) Urine Nitrite (NEGATIVE) Urine Bilirubin (NEGATIVE) Urine Urobilinogen (NEGATIVE) mg/dL Ur Leukocyte Esterase (NEGATIVE) Urine RBC (0-5) Urine WBC (0-5) Ur Squamous Epith Cells (NS,R,O) Urine Bacteria (NS) Urine Mucus (NS) 11/23/18 11/23/18 11/23/18 Range/Units 08:10 08:10 08:10 WBC (4.5-12.0) X10-3/uL RBC (4.30-5.75) x10(6)uL Hgb (13.5-17.8) g/dL Hct (30.0-51.3) % MCV (80-96) fL MCH (27.7-33.6) pg MCHC (32.2-35.4) g/dL RDW (11.5-15.5) % Plt Count (125-369) X10(3)uL MPV (7.4-10.4) fL Add Manual Diff Neutrophils % (Manual) (46-82) % Band Neutrophils % (0-6) % Lymphocytes % (Manual) (13-37) % Monocytes % (Manual) (4-12) % PT (8.7-11.1) INR (0.89-1.13) D-Dimer, Quantitative 0.91 H (0.0-0.59) mg/LFEU Sodium (135-145) mmol/L Potassium (3.5-5.3) mmol/L Chloride (100-110) mmol/L Carbon Dioxide (21-32) mmol/L BUN (7-18) mg/dL Creatinine (0.70-1.30) mg/dL Est Cr Clr Drug Dosing mL/min Estimated GFR (MDRD) (>60) BUN/Creatinine Ratio (9-20) Glucose (80-116) mg/dL Lactic Acid 1.0 (0.4-2.2) mmol/L Calcium (8.6-10.2) mg/dL Total Bilirubin (0.1-1.3) mg/dL AST (5-25) IU/L ALT (12-36) U/L Alkaline Phosphatase (56-112) IU/L Troponin I < 0.017 L (<0.017-0.056) ng/mL Total Protein (6.0-8.0) g/dL Albumin (3.2-4.6) g/dL Globulin g/dL Albumin/Globulin Ratio Urine Color (YELLOW) Urine Appearance (CLEAR) Urine pH (5.0-6.5) Ur Specific [place] (1.010-1.025) Urine Protein (NEGATIVE) mg/dL Urine Glucose (UA) (NORMAL) mg/dL Urine Ketones (NEGATIVE) mg/dL Urine Occult Blood (NEGATIVE) Urine Nitrite (NEGATIVE) Urine Bilirubin (NEGATIVE) Urine Urobilinogen (NEGATIVE) mg/dL Ur Leukocyte Esterase (NEGATIVE) Urine RBC (0-5) Urine WBC (0-5) Ur Squamous Epith Cells (NS,R,O) Urine Bacteria (NS) Urine Mucus (NS) 11/23/18 Range/Units 11:40 WBC (4.5-12.0) X10-3/uL RBC (4.30-5.75) x10(6)uL Hgb (13.5-17.8) g/dL Hct (30.0-51.3) % MCV (80-96) fL MCH (27.7-33.6) pg MCHC (32.2-35.4) g/dL RDW (11.5-15.5) % Plt Count (125-369) X10(3)uL MPV (7.4-10.4) fL Add Manual Diff Neutrophils % (Manual) (46-82) % Band Neutrophils % (0-6) % Lymphocytes % (Manual) (13-37) % Monocytes % (Manual) (4-12) % PT (8.7-11.1) INR (0.89-1.13) D-Dimer, Quantitative (0.0-0.59) mg/LFEU Sodium (135-145) mmol/L Potassium (3.5-5.3) mmol/L Chloride (100-110) mmol/L Carbon Dioxide (21-32) mmol/L BUN (7-18) mg/dL Creatinine (0.70-1.30) mg/dL Est Cr Clr Drug Dosing mL/min Estimated GFR (MDRD) (>60) BUN/Creatinine Ratio (9-20) Glucose (80-116) mg/dL Lactic Acid (0.4-2.2) mmol/L Calcium (8.6-10.2) mg/dL Total Bilirubin (0.1-1.3) mg/dL AST (5-25) IU/L ALT (12-36) U/L Alkaline Phosphatase (56-112) IU/L Troponin I (<0.017-0.056) ng/mL Total Protein (6.0-8.0) g/dL Albumin (3.2-4.6) g/dL Globulin g/dL Albumin/Globulin Ratio Urine Color Yellow (YELLOW) Urine Appearance Clear (CLEAR) Urine pH 5.0 (5.0-6.5) Ur Specific [place] 1.005 L (1.010-1.025) Urine Protein Negative (NEGATIVE) mg/dL Urine Glucose (UA) Normal (NORMAL) mg/dL Urine Ketones Negative (NEGATIVE) mg/dL Urine Occult Blood Negative (NEGATIVE) Urine Nitrite Negative (NEGATIVE) Urine Bilirubin Negative (NEGATIVE) Urine Urobilinogen 1 H (NEGATIVE) mg/dL Ur Leukocyte Esterase Negative (NEGATIVE) Urine RBC 0-5 (0-5) Urine WBC 0-5 (0-5) Ur Squamous Epith Cells Occasional (NS,R,O) Urine Bacteria Rare H (NS) Urine Mucus Many H (NS) Result Diagrams: 11/23/18 08:10 11/23/18 08:10 Seamus Results Last 24 hrs: Microbiology 11/23/18 08:10 Influenza Type A Antigen Screen - Final Nasopharyngeal Swab NEGATIVE INFLUENZA A VIRUS AG REFERENCE RANGE: NEGATIVE Influenza Type B Antigen Screen - Final NEGATIVE INFLUENZA B VIRUS AG REFERENCE RANGE: NEGATIVE EKG INTERPRETATION Rhythm: NSR - Problem List (1) Multifocal pneumonia SNOMED Code(s): 187502244 ICD Code: J18.9 - PNEUMONIA, UNSPECIFIED ORGANISM Status: Acute Current Visit: Yes (2) COPD (chronic obstructive pulmonary disease) SNOMED Code(s): 18164084 ICD Code: J44.9 - CHRONIC OBSTRUCTIVE PULMONARY DISEASE, UNSPECIFIED Status : Acute Current Visit: Yes Qualifiers: COPD type: COPD with acute exacerbation Qualified Code(s): J44.1 - Chronic obstructive pulmonary disease with (acute) exacerbation (3) GERD (gastroesophageal reflux disease) SNOMED Code(s): 363394760 ICD Code: K21.9 - GASTRO-ESOPHAGEAL REFLUX DISEASE WITHOUT ESOPHAGITIS Status: Chronic Current Visit: Yes Qualifiers: Esophagitis presence: with esophagitis Qualified Code(s): K21.0 - Gastro- esophageal reflux disease with esophagitis (4) CAD (coronary artery disease) SNOMED Code(s): 87791419 ICD Code: I25.10 - ATHSCL HEART DISEASE OF [place] CORONARY ARTERY W/O ANG PCTRS Status: Chronic Current Visit: Yes Qualifiers: Coronary Disease-Associated Artery/Lesion type: [place] artery (5) TED (generalized anxiety disorder) SNOMED Code(s): 58615957 ICD Code: F41.1 - GENERALIZED ANXIETY DISORDER Status: Acute Current Visit: Yes (6) RLS (restless legs syndrome) SNOMED Code(s): 76780187 ICD Code: G25.81 - RESTLESS LEGS SYNDROME Status: Chronic Current Visit: Yes (7) Anemia SNOMED Code(s): 028621326 ICD Code: D64.9 - ANEMIA, UNSPECIFIED Status: Chronic Current Visit: Yes Qualifiers: Anemia type: B12 deficiency (8) HLD (hyperlipidemia) SNOMED Code(s): 72706972 ICD Code: E78.5 - HYPERLIPIDEMIA, UNSPECIFIED Status: Chronic Current Visit: Yes Qualifiers: Hyperlipidemia type: unspecified Qualified Code(s): E78.5 - Hyperlipidemia , unspecified (9) Cerebral vascular disease SNOMED Code(s): 06183929 ICD Code: I67.9 - CEREBROVASCULAR DISEASE, UNSPECIFIED Status: Acute Current Visit: Yes (10) Labile hypertension SNOMED Code(s): 535103465 ICD Code: I10 - ESSENTIAL (PRIMARY) HYPERTENSION Status: Acute Current Visit: No Problem List Initiated/Reviewed/Updated: Yes Orders Last 24hrs: Active Orders 24 hr Category Date Time Status Admission Status [Patient Status] [ADT] Routine ADT 11/23/18 10:01 Active EKG Documentation Completion [RC] ASDIRECTED Care 11/23/18 07:54 Active Notify Provider Vital Signs [RC] ASDIRECTED Care 11/23/18 10:18 Active Oxygen Therapy [RC] PRN Care 11/23/18 10:17 Active Pneumonia Education [RC] DAILY Care 11/23/18 10:14 Active Pulse Oximetry [RC] PRN Care 11/23/18 10:18 Active RT Aerosol Therapy [RC] ASDIRECTED Care 11/23/18 08:01 Active RT Incentive Spirometry [RC] Q4HR Care 11/23/18 10:14 Active Up With Assistance [RC] ASDIRECTED Care 11/23/18 10:17 Active VTE/DVT Education [RC] Per Unit Routine Care 11/23/18 10:17 Active Vital Signs [RC] QSHIFT Care 11/23/18 10:17 Active Regular Diet [DIET] Diet 11/23/18 Lunch Active BASIC METABOLIC PANEL,BMP [CHEM] AM Lab 11/24/18 05:11 Ordered CBC WITH AUTO DIFF [HEME] AM Lab 11/24/18 05:11 Ordered CULTURE BLOOD [BC] Urgent Lab 11/23/18 08:05 Received CULTURE BLOOD [BC] Urgent Lab 11/23/18 08:10 Received CULTURE SPUTUM + SMEAR [RM] Routine Lab 11/23/18 10:14 Ordered Albuterol [Proventil Neb Soln] Med 11/23/18 10:14 Active 2.5 mg NEB Q2H PRN Albuterol/Ipratropium [DuoNeb 3.0-0.5 MG/3 ML] Med 11/23/18 11:00 Active 3 ml NEB QIDRT Azithromycin [Zithromax] 500 mg Med 11/23/18 10:30 Active Sodium Chloride 0.9% [Normal Saline] 250 ml IV Q24H Sodium Chloride 0.9% [Normal Saline] 1,000 ml Med 11/23/18 09:15 Active IV ASDIRECTED Sodium Chloride 0.9% [Saline Flush] Med 11/23/18 07:52 Active 10 ml FLUSH ASDIRECTED PRN Sodium Chloride 0.9% [Saline Flush] Med 11/23/18 10:14 Active 10 ml FLUSH ASDIRECTED PRN cefTRIAXone [Rocephin] Med 11/23/18 10:30 Active 1 gm IVPUSH Q24H Blood Culture x2 Reflex Set [OM.PC] Urgent Oth 11/23/18 07:53 Ordered Give supplemental Oxygen PRN [COMM] Routine Oth 11/23/18 10:14 Ordered Saline Lock Insert [OM.PC] Routine Oth 11/23/18 07:52 Ordered Code Status [Resuscitation Status] Stat Resus Stat 11/23/18 08:00 Ordered EKG 12 Lead [EK] Stat Ther 11/23/18 07:54 Ordered Medication Orders Albuterol (Proventil Neb Soln) 2.5 mg NEB Q2H PRN PRN Reason: Shortness Of Breath/wheezing Albuterol/Ipratropium (Duoneb 3.0-0.5 Mg/3 Ml) 3 ml NEB QIDRT [facility] Last Admin: 11/23/18 16:09 Dose: 3 ml Admin: 11/23/18 12:53 Dose: 3 ml Ceftriaxone Sodium (Rocephin) 1 gm IVPUSH Q24H [facility] Last Admin: 11/23/18 12:50 Dose: 1 gm Sodium Chloride (Normal Saline) 1,000 mls @ 100 mls/hr IV ASDIRECTED [facility] Last Admin: 11/23/18 09:07 Dose: 100 mls/hr Azithromycin 500 mg/ Sodium (Chloride) 250 mls @ 250 mls/hr IV Q24H [facility] Last Admin: 11/23/18 12:57 Dose: 250 mls/hr Sodium Chloride (Saline Flush) 10 ml FLUSH ASDIRECTED PRN PRN Reason: Keep Vein Open Last Admin: 11/23/18 08:08 Dose: 10 ml Sodium Chloride (Saline Flush) 10 ml FLUSH ASDIRECTED PRN PRN Reason: Keep Vein Open Assessment/Plan Comment:: The CT showed multilobar pneumonia even raising the possibility of aspiration. For now would treat with Unasyn, azithromycin and Solu-Medrol. Also continue oxygen supplementation and SVNs. Repeat labs in the morning.
[2018-11-23] MEDS: Acetaminophen 325 MG Tab PO PRN ×2 (17:35→20:47)
[2018-11-23] MEDS: methylPREDNISolone Sodium Succinate 125 MG/2 ML SDV IVPUSH SCH (17:35)
[2018-11-23] MEDS: Ampicillin/Sulbactam Na 3 GM in Sodium Chloride 0.9% 100 ML IV SCH ×2 (18:15→22:46)
[2018-11-23] MEDS: Acetaminophen 325 MG Tab PO SCH (20:40)
[2018-11-23] MEDS: Gabapentin 300 MG Cap PO SCH (20:47)
[2018-11-23] MEDS: Docusate Sodium 250 MG Cap PO SCH (21:47)
[2018-11-24] MEDS: methylPREDNISolone Sodium Succinate 125 MG/2 ML SDV IVPUSH SCH ×3 (00:19→16:37)
[2018-11-24] MEDS: Sodium Chloride 0.9% 10 ML Syringe FLUSH PRN ×4 (00:19→17:49)
[2018-11-24] MEDS: Ampicillin/Sulbactam Na 3 GM in Sodium Chloride 0.9% 100 ML IV SCH ×4 (04:51→22:54)
[2018-11-24] MEDS: Albuterol/Ipratropium 3.0-0.5 MG/3 ML Neb Soln NEB SCH ×4 (06:14→20:29)
[2018-11-24] MEDS: Pantoprazole 40 MG Tab.CR PO SCH (07:40)
[2018-11-24] MEDS: Sertraline 50 MG Tab PO SCH (09:09)
[2018-11-24] MEDS: Clopidogrel 75 MG Tab PO SCH (09:09)
[2018-11-24] MEDS: Cyanocobalamin (Vitamin B12) 1,000 MCG Tab PO SCH (09:09)
[2018-11-24] MEDS: Aspirin 81 MG Tab.Chew PO SCH (09:09)
[2018-11-24] MEDS: Calcium Carbonate 500 MG Tablet PO SCH (09:09)
--- NOTE | 2018-11-24 09:14 | PCM.PN ---
- General Info Date of Service: 11/24/18 Subjective Update: Feels better than yesterday. - Review of Systems Pulmonary: Reports: Shortness of Breath, Cough Cardiovascular: Reports: No Symptoms Gastrointestinal: Reports: No Symptoms Genitourinary: Reports: No Symptoms - Patient Data Vitals - Most Recent: Last Vital Signs Temp 97.3 F 11/24/18 00:00 Pulse 75 11/24/18 00:00 Resp 17 11/24/18 00:00 BP 119/57 L 11/24/18 00:00 Pulse Ox 97 11/24/18 02:18 Weight - Most Recent: 63.957 kg I&O - Last 24 Hours: Intake & Output 11/23/18 11/24/18 11/24/18 22:59 06:59 14:59 Intake Total 700 350 Balance 700 350 Lab Results Last 24 Hours: Laboratory Results - last 24 hr 11/23/18 11/24/18 11/24/18 Range/Units 11:40 06:10 06:10 WBC 8.9 (4.5-12.0) X10-3/uL RBC 3.75 L (4.30-5.75) x10(6)uL Hgb 12.1 L (13.5-17.8) g/dL Hct 35.4 (30.0-51.3) % MCV 94.3 (80-96) fL MCH 32.3 (27.7-33.6) pg MCHC 34.3 (32.2-35.4) g/dL RDW 13.3 (11.5-15.5) % Plt Count 183 (125-369) X10(3)uL MPV 7.4 (7.4-10.4) fL Neut % (Auto) 93.4 H (46-82) % Lymph % (Auto) 4.9 L (13-37) % [place] % (Auto) 1.6 L (4-12) % Eos % (Auto) 0 L (1.0-5.0) % Baso % (Auto) 0 (0-2) % Neut # (Auto) 8.4 H (1.6-8.3) # Lymph # (Auto) 0.4 L (0.6-5.0) # [place] # (Auto) 0.1 (0.0-1.3) # Eos # (Auto) 0.0 (0.0-0.8) # Baso # (Auto) 0.0 (0.0-0.2) # Sodium 142 (135-145) mmol/L Potassium 4.0 (3.5-5.3) mmol/L Chloride 107 D (100-110) mmol/L Carbon Dioxide 31 (21-32) mmol/L BUN 11 (7-18) mg/dL Creatinine 0.7 (0.70-1.30) mg/dL Est Cr Clr Drug Dosing 76.14 mL/min Estimated GFR (MDRD) > 60 (>60) BUN/Creatinine Ratio 15.7 (9-20) Glucose 149 H (80-116) mg/dL Calcium 8.4 L (8.6-10.2) mg/dL Troponin I (<0.017-0.056) ng/mL NT-Pro-B Natriuret Pep (<=450) pg/mL Urine Color Yellow (YELLOW) Urine Appearance Clear (CLEAR) Urine pH 5.0 (5.0-6.5) Ur Specific [place] 1.005 L (1.010-1.025) Urine Protein Negative (NEGATIVE) mg/dL Urine Glucose (UA) Normal (NORMAL) mg/dL Urine Ketones Negative (NEGATIVE) mg/dL Urine Occult Blood Negative (NEGATIVE) Urine Nitrite Negative (NEGATIVE) Urine Bilirubin Negative (NEGATIVE) Urine Urobilinogen 1 H (NEGATIVE) mg/dL Ur Leukocyte Esterase Negative (NEGATIVE) Urine RBC 0-5 (0-5) Urine WBC 0-5 (0-5) Ur Squamous Epith Cells Occasional (NS,R,O) Urine Bacteria Rare H (NS) Urine Mucus Many H (NS) 11/24/18 Range/Units 06:10 WBC (4.5-12.0) X10-3/uL RBC (4.30-5.75) x10(6)uL Hgb (13.5-17.8) g/dL Hct (30.0-51.3) % MCV (80-96) fL MCH (27.7-33.6) pg MCHC (32.2-35.4) g/dL RDW (11.5-15.5) % Plt Count (125-369) X10(3)uL MPV (7.4-10.4) fL Neut % (Auto) (46-82) % Lymph % (Auto) (13-37) % [place] % (Auto) (4-12) % Eos % (Auto) (1.0-5.0) % Baso % (Auto) (0-2) % Neut # (Auto) (1.6-8.3) # Lymph # (Auto) (0.6-5.0) # [place] # (Auto) (0.0-1.3) # Eos # (Auto) (0.0-0.8) # Baso # (Auto) (0.0-0.2) # Sodium (135-145) mmol/L Potassium (3.5-5.3) mmol/L Chloride (100-110) mmol/L Carbon Dioxide (21-32) mmol/L BUN (7-18) mg/dL Creatinine (0.70-1.30) mg/dL Est Cr Clr Drug Dosing mL/min Estimated GFR (MDRD) (>60) BUN/Creatinine Ratio (9-20) Glucose (80-116) mg/dL Calcium (8.6-10.2) mg/dL Troponin I < 0.017 L (<0.017-0.056) ng/mL NT-Pro-B Natriuret Pep 272 (<=450) pg/mL Urine Color (YELLOW) Urine Appearance (CLEAR) Urine pH (5.0-6.5) Ur Specific Jay (1.010-1.025) Urine Protein (NEGATIVE) mg/dL Urine Glucose (UA) (NORMAL) mg/dL Urine Ketones (NEGATIVE) mg/dL Urine Occult Blood (NEGATIVE) Urine Nitrite (NEGATIVE) Urine Bilirubin (NEGATIVE) Urine Urobilinogen (NEGATIVE) mg/dL Ur Leukocyte Esterase (NEGATIVE) Urine RBC (0-5) Urine WBC (0-5) Ur Squamous Epith Cells (NS,R,O) Urine Bacteria (NS) Urine Mucus (NS) [place] Results Last 24 Hours: Microbiology 11/23/18 08:05 Aerobic Blood Culture - Preliminary Blood - Venous - Lab Draw NO GROWTH AFTER 1 DAY Anaerobic Blood Culture - Preliminary NO GROWTH AFTER 1 DAY 11/23/18 08:10 Aerobic Blood Culture - Preliminary Blood - Venous NO GROWTH AFTER 1 DAY Anaerobic Blood Culture - Preliminary NO GROWTH AFTER 1 DAY 11/23/18 08:10 Influenza Type A Antigen Screen - Final Nasopharyngeal Swab NEGATIVE INFLUENZA A VIRUS AG REFERENCE RANGE: NEGATIVE Influenza Type B Antigen Screen - Final NEGATIVE INFLUENZA B VIRUS AG REFERENCE RANGE: NEGATIVE Med Orders - Current: Current Medications Acetaminophen (Tylenol) 325 mg PO BEDTIME [facility] Last Admin: 11/23/18 20:40 Dose: 325 mg Acetaminophen (Tylenol) 325 mg PO Q4H PRN PRN Reason: Pain/Fever Last Admin: 11/23/18 17:35 Dose: 325 mg Albuterol (Proventil Neb Soln) 2.5 mg NEB Q2H PRN PRN Reason: Shortness Of Breath/wheezing Albuterol/Ipratropium (Duoneb 3.0-0.5 Mg/3 Ml) 3 ml NEB QIDRT [facility] Last Admin: 11/24/18 06:14 Dose: 3 ml Aspirin (Aspirin) 81 mg PO DAILY [facility] Calcium Carbonate/Glycine (Oyster Shell Calcium) 500 mg PO DAILY [facility] Clopidogrel Bisulfate (Plavix) 75 mg PO DAILY [facility] Cyanocobalamin (Vitamin B12) 1,000 mcg PO DAILY [facility] Docusate Sodium (Dok) 750 mg PO BEDTIME [facility] Last Admin: 11/23/18 21:47 Dose: 750 mg Gabapentin (Neurontin) 300 mg PO BEDTIME [facility] Last Admin: 11/23/18 20:47 Dose: 300 mg Azithromycin 500 mg/ Sodium (Chloride) 250 mls @ 250 mls/hr IV Q24H [facility] Last Admin: 11/23/18 12:57 Dose: 250 mls/hr Ampicillin Sodium/Sulbactam (Sodium 3 gm/ Sodium Chloride) 100 mls @ 100 mls/ hr IV Q6H [facility] Last Admin: 11/24/18 04:51 Dose: 100 mls/hr Methylprednisolone Sodium Succinate (Solu-Medrol) 125 mg IVPUSH Q8H [facility] Last Admin: 11/24/18 00:19 Dose: 125 mg Pantoprazole Sodium (Protonix) 40 mg PO ACBREAKFAST [facility] Last Admin: 11/24/18 07:40 Dose: 40 mg Sertraline HCl (Zoloft) 50 mg PO DAILY [facility] Sodium Chloride (Saline Flush) 10 ml FLUSH ASDIRECTED PRN PRN Reason: Keep Vein Open Last Admin: 11/24/18 06:14 Dose: 10 ml Sodium Chloride (Saline Flush) 10 ml FLUSH ASDIRECTED PRN PRN Reason: Keep Vein Open Discontinued Medications Albuterol/Ipratropium (Duoneb 3.0-0.5 Mg/3 Ml) 3 ml NEB ONETIME ONE Stop: 11/23/18 08:02 Last Admin: 11/23/18 08:11 Dose: 3 ml Ceftriaxone Sodium (Rocephin) 1 gm IVPUSH Q24H [facility] Last Admin: 11/23/18 12:50 Dose: 1 gm Sodium Chloride (Normal Saline) 500 mls @ 500 mls/hr IV .BOLUS ONE Stop: 11/23/18 08:51 Last Admin: 11/23/18 08:08 Dose: 500 mls/hr Sodium Chloride (Normal Saline) 1,000 mls @ 100 mls/hr IV ASDIRECTED [facility] Last Admin: 11/23/18 09:07 Dose: 100 mls/hr Iopamidol (Isovue-370 (76%)) 75 ml IV ONETIME ONE Stop: 11/23/18 09:24 Last Admin: 11/23/18 09:24 Dose: 75 ml - Exam Quality Assessment: Supplemental Oxygen General: Mild Distress HEENT: Pupils Equal Neck: Supple Lungs: Decreased Breath Sounds Cardiovascular: Regular Rate, Murmurs Extremities: Normal Inspection, No Pedal Edema Psy/Mental Status: Alert, Normal Affect - Problem List & Annotations (1) Multifocal pneumonia SNOMED Code(s): 745535998 Code(s): J18.9 - PNEUMONIA, UNSPECIFIED ORGANISM Status: Acute Current Visit: Yes (2) COPD (chronic obstructive pulmonary disease) SNOMED Code(s): 66666135 Code(s): J44.9 - CHRONIC OBSTRUCTIVE PULMONARY DISEASE, UNSPECIFIED Status : Acute Current Visit: Yes Qualifiers: COPD type: COPD with acute exacerbation Qualified Code(s): J44.1 - Chronic obstructive pulmonary disease with (acute) exacerbation (3) GERD (gastroesophageal reflux disease) SNOMED Code(s): 097526075 Code(s): K21.9 - GASTRO-ESOPHAGEAL REFLUX DISEASE WITHOUT ESOPHAGITIS Status: Chronic Current Visit: Yes Qualifiers: Esophagitis presence: with esophagitis Qualified Code(s): K21.0 - Gastro- esophageal reflux disease with esophagitis (4) CAD (coronary artery disease) SNOMED Code(s): 42576892 Code(s): I25.10 - ATHSCL HEART DISEASE OF [place] CORONARY ARTERY W/O ANG PCTRS Status: Chronic Current Visit: Yes Qualifiers: Coronary Disease-Associated Artery/Lesion type: [place] artery (5) TED (generalized anxiety disorder) SNOMED Code(s): 91379474 Code(s): F41.1 - GENERALIZED ANXIETY DISORDER Status: Acute Current Visit : Yes (6) RLS (restless legs syndrome) SNOMED Code(s): 39054077 Code(s): G25.81 - RESTLESS LEGS SYNDROME Status: Chronic Current Visit: Yes (7) Anemia SNOMED Code(s): 915656184 Code(s): D64.9 - ANEMIA, UNSPECIFIED Status: Chronic Current Visit: Yes Qualifiers: Anemia type: B12 deficiency (8) HLD (hyperlipidemia) SNOMED Code(s): 66409758 Code(s): E78.5 - HYPERLIPIDEMIA, UNSPECIFIED Status: Chronic Current Visit: Yes Qualifiers: Hyperlipidemia type: unspecified Qualified Code(s): E78.5 - Hyperlipidemia , unspecified (9) Cerebral vascular disease SNOMED Code(s): 03963913 Code(s): I67.9 - CEREBROVASCULAR DISEASE, UNSPECIFIED Status: Acute Current Visit: Yes (10) Labile hypertension SNOMED Code(s): 603818510 Code(s): I10 - ESSENTIAL (PRIMARY) HYPERTENSION Status: Acute Current Visit: No - Problem List Review Problem List Initiated/Reviewed/Updated: Yes - My Orders Last 24 Hours: My Active Orders 11/23/18 17:00 Acetaminophen [Tylenol] 325 mg PO Q4H PRN Ampicillin/Sulbactam Na [Unasyn] 3 gm Sodium Chloride 0.9% [Normal Saline] 100 ml IV Q6H methylPREDNISolone Sod Succ [Solu-MEDROL] 125 mg IVPUSH Q8H 11/23/18 21:00 Acetaminophen [Tylenol] 325 mg PO BEDTIME Docusate Sodium [Dok] 750 mg PO BEDTIME Gabapentin [Neurontin] 300 mg PO BEDTIME 11/24/18 07:30 Pantoprazole [ProTONIX] 40 mg PO ACBREAKFAST 11/24/18 09:00 Aspirin 81 mg PO DAILY Calcium Carbonate [Oyster Shell Calcium] 500 mg PO DAILY Clopidogrel [Plavix] 75 mg PO DAILY Cyanocobalamin (Vitamin B12) [Vitamin B12] 1,000 mcg PO DAILY Sertraline [Zoloft] 50 mg PO DAILY - Plan Plan:: Continue current abx and Steroid therapy.Supplement O2.
[2018-11-24] MEDS: Azithromycin 500 MG in Sodium Chloride 0.9% 250 ML IV SCH (10:23)
[2018-11-24] MEDS: Gabapentin 300 MG Cap PO SCH (20:39)
[2018-11-24] MEDS: Acetaminophen 325 MG Tab PO SCH (20:39)
[2018-11-24] MEDS: Docusate Sodium 250 MG Cap PO SCH (20:39)
[2018-11-25] MEDS: methylPREDNISolone Sodium Succinate 125 MG/2 ML SDV IVPUSH SCH ×3 (00:19→16:17)
[2018-11-25] MEDS: Sodium Chloride 0.9% 10 ML Syringe FLUSH PRN ×4 (00:19→16:18)
[2018-11-25] MEDS: Ampicillin/Sulbactam Na 3 GM in Sodium Chloride 0.9% 100 ML IV SCH ×4 (05:05→23:06)
[2018-11-25] MEDS: Albuterol/Ipratropium 3.0-0.5 MG/3 ML Neb Soln NEB SCH ×4 (06:00→20:39)
[2018-11-25] MEDS: Pantoprazole 40 MG Tab.CR PO SCH (07:19)
[2018-11-25] MEDS: Calcium Carbonate 500 MG Tablet PO SCH (08:08)
[2018-11-25] MEDS: Aspirin 81 MG Tab.Chew PO SCH (08:08)
[2018-11-25] MEDS: Sertraline 50 MG Tab PO SCH (08:09)
[2018-11-25] MEDS: Cyanocobalamin (Vitamin B12) 1,000 MCG Tab PO SCH (08:09)
[2018-11-25] MEDS: Clopidogrel 75 MG Tab PO SCH (08:09)
--- NOTE | 2018-11-25 08:45 | PCM.PN ---
- General Info Date of Service: 11/25/18 Subjective Update: Feels better than yesterday,perhaps back to his baseline. Denies chest pain. Functional Status: Reports: Pain Controlled - Review of Systems General: Reports: No Symptoms HEENT: Reports: No Symptoms Pulmonary: Reports: Shortness of Breath, Cough Cardiovascular: Reports: No Symptoms Gastrointestinal: Reports: No Symptoms Genitourinary: Reports: No Symptoms Musculoskeletal: Reports: No Symptoms - Patient Data Vitals - Most Recent: Last Vital Signs Temp 97.1 F 11/25/18 00:00 Pulse 81 11/25/18 06:00 Resp 20 11/25/18 00:00 BP 145/71 H 11/25/18 00:00 Pulse Ox 96 11/25/18 06:00 Weight - Most Recent: 63.957 kg I&O - Last 24 Hours: Intake & Output 11/24/18 11/25/18 11/25/18 22:59 06:59 14:59 Intake Total 450 Balance 450 Lab Results Last 24 Hours: Laboratory Results - last 24 hr 11/25/18 11/25/18 Range/Units 06:48 06:48 WBC 13.8 H (4.5-12.0) X10-3/uL RBC 3.71 L (4.30-5.75) x10(6)uL Hgb 12.1 L (13.5-17.8) g/dL Hct 35.1 (30.0-51.3) % MCV 94.7 (80-96) fL MCH 32.7 (27.7-33.6) pg MCHC 34.6 (32.2-35.4) g/dL RDW 13.1 (11.5-15.5) % Plt Count 216 (125-369) X10(3)uL MPV 7.2 L (7.4-10.4) fL Add Manual Diff Yes Neutrophils % (Manual) 94 H (46-82) % Lymphocytes % (Manual) 2 L (13-37) % Monocytes % (Manual) 4 (4-12) % Sodium 145 (135-145) mmol/L Potassium 3.6 (3.5-5.3) mmol/L Chloride 107 (100-110) mmol/L Carbon Dioxide 31 (21-32) mmol/L BUN 11 (7-18) mg/dL Creatinine 0.6 L (0.70-1.30) mg/dL Est Cr Clr Drug Dosing 88.83 mL/min Estimated GFR (MDRD) > 60 (>60) BUN/Creatinine Ratio 18.3 (9-20) Glucose 153 H (80-116) mg/dL Calcium 8.5 L (8.6-10.2) mg/dL [place] Results Last 24 Hours: Microbiology 11/23/18 08:10 Aerobic Blood Culture - Preliminary Blood - Venous NO GROWTH AFTER 2 DAYS Anaerobic Blood Culture - Preliminary NO GROWTH AFTER 2 DAYS 11/23/18 08:05 Aerobic Blood Culture - Preliminary Blood - Venous - Lab Draw NO GROWTH AFTER 2 DAYS Anaerobic Blood Culture - Preliminary NO GROWTH AFTER 2 DAYS Med Orders - Current: Current Medications Acetaminophen (Tylenol) 325 mg PO BEDTIME [facility] Last Admin: 11/24/18 20:39 Dose: 325 mg Acetaminophen (Tylenol) 325 mg PO Q4H PRN PRN Reason: Pain/Fever Last Admin: 11/23/18 17:35 Dose: 325 mg Albuterol (Proventil Neb Soln) 2.5 mg NEB Q2H PRN PRN Reason: Shortness Of Breath/wheezing Albuterol/Ipratropium (Duoneb 3.0-0.5 Mg/3 Ml) 3 ml NEB QIDRT [facility] Last Admin: 11/25/18 06:00 Dose: 3 ml Aspirin (Aspirin) 81 mg PO DAILY [facility] Last Admin: 11/25/18 08:08 Dose: 81 mg Calcium Carbonate/Glycine (Oyster Shell Calcium) 500 mg PO DAILY [facility] Last Admin: 11/25/18 08:08 Dose: 500 mg Clopidogrel Bisulfate (Plavix) 75 mg PO DAILY [facility] Last Admin: 11/25/18 08:09 Dose: 75 mg Cyanocobalamin (Vitamin B12) 1,000 mcg PO DAILY [facility] Last Admin: 11/25/18 08:09 Dose: 1,000 mcg Docusate Sodium (Dok) 750 mg PO BEDTIME [facility] Last Admin: 11/24/18 20:39 Dose: 750 mg Gabapentin (Neurontin) 300 mg PO BEDTIME [facility] Last Admin: 11/24/18 20:39 Dose: 300 mg Azithromycin 500 mg/ Sodium (Chloride) 250 mls @ 250 mls/hr IV Q24H [facility] Last Admin: 11/24/18 10:23 Dose: 250 mls/hr Ampicillin Sodium/Sulbactam (Sodium 3 gm/ Sodium Chloride) 100 mls @ 100 mls/ hr IV Q6H [facility] Last Admin: 11/25/18 05:05 Dose: 100 mls/hr Methylprednisolone Sodium Succinate (Solu-Medrol) 125 mg IVPUSH Q8H [facility] Last Admin: 11/25/18 08:09 Dose: 125 mg Pantoprazole Sodium (Protonix) 40 mg PO ACBREAKFAST [facility] Last Admin: 11/25/18 07:19 Dose: 40 mg Sertraline HCl (Zoloft) 50 mg PO DAILY [facility] Last Admin: 11/25/18 08:09 Dose: 50 mg Sodium Chloride (Saline Flush) 10 ml FLUSH ASDIRECTED PRN PRN Reason: Keep Vein Open Last Admin: 11/25/18 08:10 Dose: 10 ml Sodium Chloride (Saline Flush) 10 ml FLUSH ASDIRECTED PRN PRN Reason: Keep Vein Open Discontinued Medications Albuterol/Ipratropium (Duoneb 3.0-0.5 Mg/3 Ml) 3 ml NEB ONETIME ONE Stop: 11/23/18 08:02 Last Admin: 11/23/18 08:11 Dose: 3 ml Ceftriaxone Sodium (Rocephin) 1 gm IVPUSH Q24H [facility] Last Admin: 11/23/18 12:50 Dose: 1 gm Sodium Chloride (Normal Saline) 500 mls @ 500 mls/hr IV .BOLUS ONE Stop: 11/23/18 08:51 Last Admin: 11/23/18 08:08 Dose: 500 mls/hr Sodium Chloride (Normal Saline) 1,000 mls @ 100 mls/hr IV ASDIRECTED [facility] Last Admin: 11/23/18 09:07 Dose: 100 mls/hr Iopamidol (Isovue-370 (76%)) 75 ml IV ONETIME ONE Stop: 11/23/18 09:24 Last Admin: 11/23/18 09:24 Dose: 75 ml - Exam Quality Assessment: Supplemental Oxygen General: Alert, Mild Distress, Other Neck: Supple Lungs: Decreased Breath Sounds, Crackles Cardiovascular: Regular Rate, Murmurs Extremities: Normal Inspection - Problem List & Annotations (1) Multifocal pneumonia SNOMED Code(s): 460627411 Code(s): J18.9 - PNEUMONIA, UNSPECIFIED ORGANISM Status: Acute Current Visit: Yes (2) COPD (chronic obstructive pulmonary disease) SNOMED Code(s): 47073905 Code(s): J44.9 - CHRONIC OBSTRUCTIVE PULMONARY DISEASE, UNSPECIFIED Status : Acute Current Visit: Yes Qualifiers: COPD type: COPD with acute exacerbation Qualified Code(s): J44.1 - Chronic obstructive pulmonary disease with (acute) exacerbation (3) GERD (gastroesophageal reflux disease) SNOMED Code(s): 468331493 Code(s): K21.9 - GASTRO-ESOPHAGEAL REFLUX DISEASE WITHOUT ESOPHAGITIS Status: Chronic Current Visit: Yes Qualifiers: Esophagitis presence: with esophagitis Qualified Code(s): K21.0 - Gastro- esophageal reflux disease with esophagitis (4) CAD (coronary artery disease) SNOMED Code(s): 48148657 Code(s): I25.10 - ATHSCL HEART DISEASE OF [place] CORONARY ARTERY W/O ANG PCTRS Status: Chronic Current Visit: Yes Qualifiers: Coronary Disease-Associated Artery/Lesion type: [place] artery (5) TED (generalized anxiety disorder) SNOMED Code(s): 17591707 Code(s): F41.1 - GENERALIZED ANXIETY DISORDER Status: Acute Current Visit : Yes (6) RLS (restless legs syndrome) SNOMED Code(s): 50330046 Code(s): G25.81 - RESTLESS LEGS SYNDROME Status: Chronic Current Visit: Yes (7) Anemia SNOMED Code(s): 361474027 Code(s): D64.9 - ANEMIA, UNSPECIFIED Status: Chronic Current Visit: Yes Qualifiers: Anemia type: B12 deficiency (8) HLD (hyperlipidemia) SNOMED Code(s): 43148628 Code(s): E78.5 - HYPERLIPIDEMIA, UNSPECIFIED Status: Chronic Current Visit: Yes Qualifiers: Hyperlipidemia type: unspecified Qualified Code(s): E78.5 - Hyperlipidemia , unspecified (9) Cerebral vascular disease SNOMED Code(s): 68875099 Code(s): I67.9 - CEREBROVASCULAR DISEASE, UNSPECIFIED Status: Acute Current Visit: Yes (10) Labile hypertension SNOMED Code(s): 999004637 Code(s): I10 - ESSENTIAL (PRIMARY) HYPERTENSION Status: Acute Current Visit: No - Problem List Review Problem List Initiated/Reviewed/Updated: Yes - My Orders Last 24 Hours: My Active Orders 11/24/18 09:00 Aspirin 81 mg PO DAILY Calcium Carbonate [Oyster Shell Calcium] 500 mg PO DAILY Clopidogrel [Plavix] 75 mg PO DAILY Cyanocobalamin (Vitamin B12) [Vitamin B12] 1,000 mcg PO DAILY Sertraline [Zoloft] 50 mg PO DAILY - Plan Plan:: Continue current abx and Steroid therapy.Supplement O2.Consider dischrage tomorrow,with Home O2
[2018-11-25] MEDS: Azithromycin 500 MG in Sodium Chloride 0.9% 250 ML IV SCH (10:38)
[2018-11-25] MEDS: Docusate Sodium 250 MG Cap PO SCH (20:39)
[2018-11-25] MEDS: Acetaminophen 325 MG Tab PO SCH (20:39)
[2018-11-25] MEDS: Gabapentin 300 MG Cap PO SCH (20:39)
[2018-11-26] MEDS: methylPREDNISolone Sodium Succinate 125 MG/2 ML SDV IVPUSH SCH ×2 (00:03→08:24)
[2018-11-26] MEDS: Ampicillin/Sulbactam Na 3 GM in Sodium Chloride 0.9% 100 ML IV SCH ×2 (06:12→12:01)
[2018-11-26] MEDS: Sodium Chloride 0.9% 10 ML Syringe FLUSH PRN ×2 (06:14→08:32)
[2018-11-26] MEDS: Albuterol/Ipratropium 3.0-0.5 MG/3 ML Neb Soln NEB SCH ×3 (06:15→17:00)
[2018-11-26 07:59] VITALS: BP 150/74
[2018-11-26] MEDS: Aspirin 81 MG Tab.Chew PO SCH (08:19)
[2018-11-26] MEDS: Clopidogrel 75 MG Tab PO SCH (08:19)
[2018-11-26] MEDS: Sertraline 50 MG Tab PO SCH (08:19)
[2018-11-26] MEDS: Cyanocobalamin (Vitamin B12) 1,000 MCG Tab PO SCH (08:19)
[2018-11-26] MEDS: Pantoprazole 40 MG Tab.CR PO SCH (08:19)
[2018-11-26] MEDS: Calcium Carbonate 500 MG Tablet PO SCH (08:19)
--- NOTE | 2018-11-26 09:09 | PCM.PN ---
- General Info Date of Service: 11/26/18 Subjective Update: Feels better than yesterday,perhaps back to his baseline. Denies chest pain. Functional Status: Reports: Pain Controlled - Review of Systems General: Reports: No Symptoms HEENT: Reports: No Symptoms Pulmonary: Reports: Shortness of Breath, Cough Cardiovascular: Reports: No Symptoms Gastrointestinal: Reports: No Symptoms Genitourinary: Reports: No Symptoms - Patient Data Vitals - Most Recent: Last Vital Signs Temp 97.6 F 11/26/18 07:54 Pulse 84 11/26/18 07:54 Resp 20 11/26/18 07:54 BP 150/74 H 11/26/18 07:54 Pulse Ox 91 L 11/26/18 07:54 Weight - Most Recent: 63.957 kg [facility] Results Last 24 Hours: Microbiology 11/23/18 08:10 Aerobic Blood Culture - Preliminary Blood - Venous NO GROWTH AFTER 3 DAYS Anaerobic Blood Culture - Preliminary NO GROWTH AFTER 3 DAYS 11/23/18 08:05 Aerobic Blood Culture - Preliminary Blood - Venous - Lab Draw NO GROWTH AFTER 3 DAYS Anaerobic Blood Culture - Preliminary NO GROWTH AFTER 3 DAYS Med Orders - Current: Current Medications Acetaminophen (Tylenol) 325 mg PO BEDTIME [facility] Last Admin: 11/25/18 20:39 Dose: 325 mg Acetaminophen (Tylenol) 325 mg PO Q4H PRN PRN Reason: Pain/Fever Last Admin: 11/23/18 17:35 Dose: 325 mg Albuterol (Proventil Neb Soln) 2.5 mg NEB Q2H PRN PRN Reason: Shortness Of Breath/wheezing Albuterol/Ipratropium (Duoneb 3.0-0.5 Mg/3 Ml) 3 ml NEB QIDRT [facility] Last Admin: 11/26/18 06:15 Dose: 3 ml Aspirin (Aspirin) 81 mg PO DAILY [facility] Last Admin: 11/26/18 08:19 Dose: 81 mg Calcium Carbonate/Glycine (Oyster Shell Calcium) 500 mg PO DAILY [facility] Last Admin: 11/26/18 08:19 Dose: 500 mg Clopidogrel Bisulfate (Plavix) 75 mg PO DAILY [facility] Last Admin: 11/26/18 08:19 Dose: 75 mg Cyanocobalamin (Vitamin B12) 1,000 mcg PO DAILY [facility] Last Admin: 11/26/18 08:19 Dose: 1,000 mcg Docusate Sodium (Dok) 750 mg PO BEDTIME [facility] Last Admin: 11/25/18 20:39 Dose: Not Given Gabapentin (Neurontin) 300 mg PO BEDTIME [facility] Last Admin: 11/25/18 20:39 Dose: 300 mg Azithromycin 500 mg/ Sodium (Chloride) 250 mls @ 250 mls/hr IV Q24H [facility] Last Admin: 11/25/18 10:38 Dose: 250 mls/hr Ampicillin Sodium/Sulbactam (Sodium 3 gm/ Sodium Chloride) 100 mls @ 100 mls/ hr IV Q6H [facility] Last Admin: 11/26/18 06:12 Dose: 100 mls/hr Methylprednisolone Sodium Succinate (Solu-Medrol) 125 mg IVPUSH Q8H [facility] Last Admin: 11/26/18 08:24 Dose: 125 mg Pantoprazole Sodium (Protonix) 40 mg PO ACBREAKFAST [facility] Last Admin: 11/26/18 08:19 Dose: 40 mg Sertraline HCl (Zoloft) 50 mg PO DAILY [facility] Last Admin: 11/26/18 08:19 Dose: 50 mg Sodium Chloride (Saline Flush) 10 ml FLUSH ASDIRECTED PRN PRN Reason: Keep Vein Open Last Admin: 11/26/18 08:32 Dose: 10 ml Sodium Chloride (Saline Flush) 10 ml FLUSH ASDIRECTED PRN PRN Reason: Keep Vein Open Discontinued Medications Albuterol/Ipratropium (Duoneb 3.0-0.5 Mg/3 Ml) 3 ml NEB ONETIME ONE Stop: 11/23/18 08:02 Last Admin: 11/23/18 08:11 Dose: 3 ml Ceftriaxone Sodium (Rocephin) 1 gm IVPUSH Q24H [facility] Last Admin: 11/23/18 12:50 Dose: 1 gm Sodium Chloride (Normal Saline) 500 mls @ 500 mls/hr IV .BOLUS ONE Stop: 11/23/18 08:51 Last Admin: 11/23/18 08:08 Dose: 500 mls/hr Sodium Chloride (Normal Saline) 1,000 mls @ 100 mls/hr IV ASDIRECTED [facility] Last Admin: 11/23/18 09:07 Dose: 100 mls/hr Iopamidol (Isovue-370 (76%)) 75 ml IV ONETIME ONE Stop: 11/23/18 09:24 Last Admin: 11/23/18 09:24 Dose: 75 ml - Exam Quality Assessment: Supplemental Oxygen General: Alert, Oriented, Mild Distress HEENT: Pupils Equal Lungs: Decreased Breath Sounds, Crackles Cardiovascular: Regular Rate Back Exam: Normal Inspection Extremities: Normal Inspection - Problem List & Annotations (1) Multifocal pneumonia SNOMED Code(s): 144814233 Code(s): J18.9 - PNEUMONIA, UNSPECIFIED ORGANISM Status: Acute Current Visit: Yes (2) COPD (chronic obstructive pulmonary disease) SNOMED Code(s): 15153900 Code(s): J44.9 - CHRONIC OBSTRUCTIVE PULMONARY DISEASE, UNSPECIFIED Status : Acute Current Visit: Yes Qualifiers: COPD type: COPD with acute exacerbation Qualified Code(s): J44.1 - Chronic obstructive pulmonary disease with (acute) exacerbation (3) GERD (gastroesophageal reflux disease) SNOMED Code(s): 206475822 Code(s): K21.9 - GASTRO-ESOPHAGEAL REFLUX DISEASE WITHOUT ESOPHAGITIS Status: Chronic Current Visit: Yes Qualifiers: Esophagitis presence: with esophagitis Qualified Code(s): K21.0 - Gastro- esophageal reflux disease with esophagitis (4) CAD (coronary artery disease) SNOMED Code(s): 83171406 Code(s): I25.10 - ATHSCL HEART DISEASE OF [place] CORONARY ARTERY W/O ANG PCTRS Status: Chronic Current Visit: Yes Qualifiers: Coronary Disease-Associated Artery/Lesion type: [place] artery (5) TED (generalized anxiety disorder) SNOMED Code(s): 44960813 Code(s): F41.1 - GENERALIZED ANXIETY DISORDER Status: Acute Current Visit : Yes (6) RLS (restless legs syndrome) SNOMED Code(s): 78209158 Code(s): G25.81 - RESTLESS LEGS SYNDROME Status: Chronic Current Visit: Yes (7) Anemia SNOMED Code(s): 969993463 Code(s): D64.9 - ANEMIA, UNSPECIFIED Status: Chronic Current Visit: Yes Qualifiers: Anemia type: B12 deficiency (8) HLD (hyperlipidemia) SNOMED Code(s): 65191950 Code(s): E78.5 - HYPERLIPIDEMIA, UNSPECIFIED Status: Chronic Current Visit: Yes Qualifiers: Hyperlipidemia type: unspecified Qualified Code(s): E78.5 - Hyperlipidemia , unspecified (9) Cerebral vascular disease SNOMED Code(s): 22286908 Code(s): I67.9 - CEREBROVASCULAR DISEASE, UNSPECIFIED Status: Acute Current Visit: Yes (10) Labile hypertension SNOMED Code(s): 957990390 Code(s): I10 - ESSENTIAL (PRIMARY) HYPERTENSION Status: Acute Current Visit: No - Problem List Review Problem List Initiated/Reviewed/Updated: Yes - Plan Plan:: I feel he is ready to go home on O2. Desaturates without it. I willsend a neb machine as well,and oral antibiotics.
--- NOTE | 2018-11-26 10:00 | DISCH ---
DISCHARGE DATE: 11/26/2018 REASON FOR ADMISSION: Multifocal pneumonia. DISCHARGE DIAGNOSES: 1. Severe chronic obstructive pulmonary disease exacerbation. 2. Community-acquired pneumonia versus aspiration pneumonia. 3. Generalized anxiety disorder. 4. History of coronary artery disease. 5. Restless legs syndrome. 6. Vitamin B12 deficiency. CONSULTATIONS: None. BRIEF HISTORY AND HOSPITAL COURSE: An 78-year-old male is known to have severe COPD, although he has not been using any medications. He last had this test in 2013. He came in because of shortness of breath and cough with low-grade fever and was found to have pneumonia in the left and right lobes, suspicion for aspiration was entertained because of choking and difficulty swallowing. He was treated with Unasyn and azithromycin. He improved, but continued to need oxygenation supplementation. As such, I did send him home on home oxygenation and nebulizer machine to use Duoneb p.r.n. He does have a Nebulizer machine, therefore I have ordered one hence forth,along with bronchodilators due to wheezing,and the severe COPD. He will need home health to check up with his medications since he is homebound and unable to follow up frequently as needed. However, I did advise him to see Dr. Chand by the end of the week. DISCHARGE MEDICATIONS: 1. Augmentin 875 mg b.i.d. for 1 week. 2. Advair Diskus 2 puffs b.i.d. 3. Aspirin 81 mg daily. 4. Calcium and vitamin D3 one daily. 5. Plavix 75 mg daily. 6. Vitamin B12, 1000 mcg daily. 7. Gabapentin 300 mg at bedtime. 8. Prednisone 10 mg b.i.d. for 10 days. 9. Pantoprazole 40 mg daily. 10.Zoloft 50 mg daily. 11.Ferrous sulfate 325 mg every 48 hours. 12.Losartan 50 mg daily. 13.Simvastatin 40 mg at bedtime. 14.DuoNeb to use every 6 hours p.r.n. 15.Verapamil 120 mg daily. FOLLOW UP: Follow up with Dr. Morrissey next week. I spent more than 35 minutes in the discharge of the patient. /[id number]
[2018-11-26] MEDS: Azithromycin 500 MG in Sodium Chloride 0.9% 250 ML IV SCH (10:53)
[2018-11-26] MEDS ORDERED: Amoxicillin/Clavulanate K 875-125 MG Tab ONE (16:05)
[2018-11-26] MEDS ORDERED: predniSONE 20 MG Tab ONE (16:07)
== END 2018-11-26 16:40 | disposition home health service (06) | DRG 178 ==
LOC: FB.ED 07:22 → FB.MS 10:01
PROVIDERS: ADMIT Family Medicine; ATTEND Family Medicine
DX: J69.0 Pneumonitis due to inhalation of food and vomit (principal); J44.1 Chronic obstructive pulmonary disease with (acute) exacerbation; I10 Essential (primary) hypertension; R09.02 Hypoxemia; I25.10 Atherosclerotic heart disease of native coronary artery without angina pectoris; R06.02 Shortness of breath; R53.1 Weakness; R42 Dizziness and giddiness; Z99.81 Dependence on supplemental oxygen; E78.5 Hyperlipidemia, unspecified; D64.9 Anemia, unspecified; G25.81 Restless legs syndrome; K21.9 Gastro-esophageal reflux disease without esophagitis; M19.90 Unspecified osteoarthritis, unspecified site; I67.9 Cerebrovascular disease, unspecified; Z86.12 Personal history of poliomyelitis; Z79.82 Long term (current) use of aspirin
CPT/HCPCS: 36415; 71045; 71275; 80053; 83605; 84484; 85025; 85379; 85610; 87040 ×2; 87804 ×2; 93005; 94640; 96360; 96361; 99285; J7030; J7040; Q9967; 80048; 81001; 83880; 87070; 87205; 94150; A9270-GY; J0295; J0456; J0696; J2930; J7050; J7620-GY

== ENCOUNTER 2019-06-12 05:46 | Day surgery (SDC) | payer MEDICARE ==
[2019-06-12] MEDS ORDERED: Propofol 200 MG/20 ML SDV IV ONE (05:47)
[2019-06-12] MEDS ORDERED: Sodium Chloride 0.9% 10 ML Syringe FLUSH PRN ×2 (06:15→06:30)
[2019-06-12] MEDS ORDERED: Lactated Ringers 1,000 ML IV SCH ×2 (06:15→06:30)
[2019-06-12] MEDS ORDERED: Albuterol/Ipratropium 3.0-0.5 MG/3 ML Neb Soln NEB ONE (07:00)
[2019-06-12] MEDS ORDERED: hydrALAZINE 20 MG/ML SDV IVPUSH ONE (07:06)
--- NOTE | 2019-06-12 07:38 | PCM.PN ---
- General Info Date of Service: 06/12/19 - Review of Systems Systems Review Comment:: 79 y/o male with history of Dysphagia here for EGD with possible dilation. He is medically stable to proceed. His recent H and P is reviewed and no significant changes are noted. I have discussed the proposed procedure with the patient. Risks including esophageal injury discussed and he agrees to proceed. - Patient Data Vitals - Most Recent: Last Vital Signs Temp 97.6 F 06/12/19 06:46 Pulse 59 L 06/12/19 07:33 Resp 15 06/12/19 06:46 BP 183/78 H 06/12/19 07:33 Pulse Ox 98 06/12/19 06:46 Weight - Most Recent: 143 lb 8.335 oz Med Orders - Current: Current Medications Lactated Ringer's (Ringers, Lactated) 1,000 mls @ 125 mls/hr IV ASDIRECTED DIANE Last Admin: 06/12/19 07:24 Dose: 125 mls/hr Sodium Chloride (Saline Flush) 10 ml FLUSH ASDIRECTED PRN PRN Reason: Keep Vein Open Discontinued Medications Albuterol/Ipratropium (Duoneb 3.0-0.5 Mg/3 Ml) 3 ml NEB ONETIME ONE Stop: 06/12/19 07:01 Last Admin: 06/12/19 07:24 Dose: 3 ml Hydralazine HCl (Apresoline) 10 mg IVPUSH ONETIME ONE Stop: 06/12/19 07:07 Last Admin: 06/12/19 07:22 Dose: 10 mg Lactated Ringer's (Ringers, Lactated) 1,000 mls @ 125 mls/hr IV ASDIRECTED DIANE Sodium Chloride (Saline Flush) 10 ml FLUSH ASDIRECTED PRN PRN Reason: Keep Vein Open Sepsis Event Note - Focused Exam Vital Signs: Vital Signs Temp Pulse Resp BP Pulse Ox 06/12/19 07:33 59 L 183/78 H 06/12/19 06:46 97.6 F 58 L 15 98 Date Exam was Performed: 06/12/19 Time Exam was Performed: 07:36 - Problem List Review Problem List Initiated/Reviewed/Updated: Yes - My Orders Last 24 Hours: My Active Orders 06/11/19 Dinner Nothing Per Oral Diet [DIET] 06/12/19 06:15 Patient Status [ADT] Routine Patient to Empty Bladder [RC] ASDIRECTED Verify Patient Consent Obtain [RC] ASDIRECTED Lactated Ringers [Ringers, Lactated] 1,000 ml IV ASDIRECTED Sodium Chloride 0.9% [Saline Flush] 10 ml FLUSH ASDIRECTED PRN Peripheral IV Insertion Adult [OM.PC] Routine - Assessment Assessment:: Dysphagia - Plan Plan:: EGD with possible dilation
--- NOTE | 2019-06-12 08:18 | PCM.OPNOTE ---
- General Post-Op/Procedure Note Date of Surgery/Procedure: 06/12/19 Operative Procedure(s): EGD with biopsy and balloon dilation Findings: White patches consistent with fungal esophagitis throughout the entire esophagus 5cm hiatal hernia Moderate stricture at GE Jct Pre Op Diagnosis: Dysphagia Post-Op Diagnosis: Nneka Esophagitis. Hiatal hernia. Esophageal stricture Anesthesia Technique: MAC Primary Surgeon: Nadir Sheldon Pathology: Gastric Antrum Esophagus EBL in mLs: 3 Complications: None Condition: Good
[2019-06-12 08:27] VITALS: BP 133/64; PULSE 73
--- NOTE | 2019-06-12 12:01 | OR ---
DATE OF OPERATION: 06/12/2019 SURGEON: Nadir Sheldon MD PREOPERATIVE DIAGNOSIS: Dysphagia. POSTOPERATIVE DIAGNOSES: 1. Nneka esophagitis. 2. Hiatal hernia. 3. Esophageal stricture. OPERATION PERFORMED: Esophagogastroduodenoscopy with biopsy and balloon dilation of the esophagus. INDICATIONS FOR SURGERY: This 79-year-old male has been having increasing difficulty with swallowing as well as pain with swallowing. He is referred for EGD finding. The patient has extensive white patches covering the entire length of his esophagus consistent with Nneka esophagitis. There was a moderate stricture at the GE junction. Although this area does not appear to be otherwise acutely inflamed. There is also no sign of any mass in the esophagus or stomach. The patient has a large hiatal hernia estimated at 5-6 cm in length. The stomach and the 1st and 2nd portions of the duodenum otherwise appear normal. PROCEDURE IN DETAIL: The patient was taken to the procedure room. He was given intravenous sedation and with him in the left lateral decubitus position, the gastroscope was inserted via a mouth guard into the oral cavity. Under direct visualization, the scope was carefully advanced down through the hypopharynx into the esophagus where the extensive white patches were seen. The scope was then carefully advanced down through the stomach and on into the duodenum where the 1st and 2nd portions were examined. After examining the duodenum, the scope was withdrawn back into the stomach, where full examination including retroflexed examination of the fundus was carried out. Random biopsies of the antrum were taken to rule out H. pylori. The scope was withdrawn back into the esophagus and biopsies of the midportion of the esophagus were taken to confirm the Nneka esophagitis. The dilating balloon was then advanced through the scope and dilation is performed to approximately 51-Urdu with the balloon dilator. This did seem to improve the stricturing at the GE junction, but there was no indication of any injury. No indication of any esophageal injury. The scope was then slowly withdrawn and with no sign of any complication, the scope was removed and the patient was taken from the procedure room in satisfactory condition. ESTIMATED BLOOD LOSS: 3 mL. COMPLICATIONS: None. PROGNOSIS: Good. /[id number]
== END 2019-06-12 09:42 | disposition home or self-care (01) ==
LOC: FB.SDS 05:46
PROVIDERS: ATTEND Surgery
DX: B37.81 Candidal esophagitis (principal); K22.2 Esophageal obstruction; K44.9 Diaphragmatic hernia without obstruction or gangrene; K29.50 Unspecified chronic gastritis without bleeding; I25.10 Atherosclerotic heart disease of native coronary artery without angina pectoris; E78.5 Hyperlipidemia, unspecified; I10 Essential (primary) hypertension; J44.9 Chronic obstructive pulmonary disease, unspecified; F41.9 Anxiety disorder, unspecified; K21.9 Gastro-esophageal reflux disease without esophagitis; M17.11 Unilateral primary osteoarthritis, right knee; M19.011 Primary osteoarthritis, right shoulder; Z79.899 Other long term (current) drug therapy; Z79.02 Long term (current) use of antithrombotics/antiplatelets; Z79.82 Long term (current) use of aspirin
CPT/HCPCS: 00731-QZ; 88305; 88312; 88342; C1726; J0360; J2704; J7120; J7620-GY

== ENCOUNTER 2019-06-16 05:43 | Inpatient (IN) | payer MEDICARE ==
--- NOTE | 2019-06-16 06:09 | EDM.PDOC ---
ED HPI GENERAL MEDICAL PROBLEM - General Time Seen by Provider: 06/16/19 06:02 Source of Information: Reports: Patient, Family (Patient's daughter) History Limitations: Reports: Respiratory Distress - History of Present Illness INITIAL COMMENTS - FREE TEXT/NARRATIVE: 79-year-old male who reports worsening cough with production of phlegm for the past 2-3 days and this has progressively worsened with time and beginning yesterday he had increasing shortness of breath and decreased exercise tolerance and this morning he feels that he can't breathe and he can't get the phlegm up. He called his daughter yesterday to tell her that he was feeling poorly and was having chills and malaise. This morning at 5 AM he called her because he was short of breath and he seemed very short of breath over the phone. She came and picked him up and brought him to the emergency department for evaluation. He is complaining of some anterior chest and back pain but he reports that it is a sore pain and he rates it as a 2/10. He reports that it is worse with breathing and with cough. No hemoptysis. No nausea or vomiting. No measured fever but he has had chills. He has also felt progressively more weak over this period of time. Decreased appetite and decreased by mouth intake yesterday. He did have an EGD performed on 06/12/2019 and was told that he had "fungus" with esophagitis and was placed on medication for this. There are no other associated signs or symptoms. There are no other modifying factors. Onset: Other (Last 2-3 days.) Duration: Getting Worse Location: Reports: Chest, Back Quality: Reports: Ache, Other (Sore) Severity: Mild Improves with: Reports: None Worsens with: Reports: Breathing, Other (Cough) Context: Reports: Other (As above) Associated Symptoms: Reports: Chest Pain, Cough, Fever/Chills, Loss of Appetite , Malaise, Shortness of Breath, Weakness Treatments OPERATIONS MANAGER: Reports: Other (see below) (Nothing) L chest/back Pain Score (Numeric/FACES): 2 - Related Data Allergies Allergy/AdvReac Type Severity Reaction Status Date / Time No Known Allergies Allergy Verified 06/16/19 06:13 Home Meds: Home Meds Aspirin 81 mg PO DAILY 05/04/15 [History] Calcium Carb, Citrate/Vit D3 [Calcium + D3 ER Tablet] 1 each PO BID 05/04/15 [ History] Clopidogrel [Plavix] 75 mg PO DAILY 05/04/15 [History] Pantoprazole [ProTONIX] 40 mg PO DAILY 05/04/15 [History] Simvastatin [Zocor] 40 mg PO BEDTIME 05/04/15 [History] Docusate Sodium 250 mg PO TID PRN 12/03/16 [History] Losartan [Cozaar] 50 mg PO DAILY #30 tablet 12/04/16 [Rx] Albuterol [Ventolin HFA] 1 - 2 puff INH Q4H PRN 11/23/18 [History] Gabapentin [Neurontin] 300 mg PO BEDTIME 11/23/18 [History] Sertraline [Zoloft] 50 mg PO DAILY 11/23/18 [History] Verapamil HCl [Verapamil ER] 120 mg PO DAILY 11/23/18 [History] Fluticasone/Salmeterol [Advair 250-50] 2 puff INH BID #1 diskus 11/26/18 [Rx] Acetaminophen [Mapap] 500 mg PO BEDTIME 06/08/19 [History] Cefuroxime [Ceftin] 250 mg PO BID 06/08/19 [History] Ferrous Gluconate 1 tab PO Q48H 06/08/19 [History] Fluticasone/Salmeterol [Advair 250-50 Diskus] 1 puff IH BID 06/08/19 [History] Pramoxine HCl [Sarna Sensitive] 1 applic TP ASDIRECTED PRN 06/08/19 [History] guaiFENesin [Mucinex] 600 mg PO BID 06/08/19 [History] predniSONE 20 mg PO DAILY 06/08/19 [History] Fluconazole 150 mg PO BID 14 Days #28 tablet 06/12/19 [Rx] Past Medical History Cardiovascular History: Reports: High Cholesterol, Hypertension Other Cardiovascular History: THORACIC AORTIC SCLEROSIS Respiratory History: Reports: COPD Other Respiratory History: states has had home o2 before at hs. Unable to tell nurse why. Gastrointestinal History: Reports: GERD Other Gastrointestinal History: ACID REFLUX Musculoskeletal History: Reports: Osteoarthritis Other Musculoskeletal History: CARPAL TUNNEL SYNDROME, OA OF RIGHT KNEE AND RIGHT SHOULDER, SCOLIOSIS Neurological History: Reports: CVA Other Neuro History: RLS Psychiatric History: Reports: Anxiety Hematologic History: Reports: Anemia, B12 Deficiency - Infectious Disease History Infectious Disease History: Reports: Chicken Pox, Measles, Shingles - Past Surgical History GI Surgical History: Reports: EGD (Multiple) Musculoskeletal Surgical History: Reports: Other (See Below) (Muscle transfer from leg to abdominal wall.) Social & Family History - Family History Musculoskeletal: Reports: Arthritis, Back pain, Chronic, Other (See Below) Other Musculoskeletal Family History: polio since 13 Dermatologic: Reports: Other (See Below) Other Dermatologic Family History: skin flakey and extremely dry to arms,legs, trunk entire body is affected - Tobacco Use Smoking Status *Q: Never Smoker - Caffeine Use Caffeine Use: Reports: Coffee, Soda - Alcohol Use Alcohol Use History: No - Living Situation & Occupation Living situation: Reports: Alone Occupation: Retired ED ROS GENERAL - Review of Systems Review Of Systems: See Below Constitutional: Reports: Fever (Subjective), Chills, Malaise, Weakness, Fatigue HEENT: Reports: No Symptoms Respiratory: Reports: Shortness of Breath, Cough, Sputum Cardiovascular: Reports: Chest Pain Endocrine: Reports: Fatigue GI/Abdominal: Reports: No Symptoms : Reports: No Symptoms Musculoskeletal: Reports: Back Pain Skin: Reports: No Symptoms Neurological: Reports: No Symptoms Hematologic/Lymphatic: Reports: No Symptoms Immunologic: Reports: No Symptoms ED EXAM, GENERAL - Physical Exam Exam: See Below Exam Limited By: No Limitations General Appearance: Alert, WD/WN, Moderate Distress (Respiratory distress. Unable to speak but in 2-3 word sentences.) Eye Exam: Bilateral Eye: EOMI, Normal Inspection, PERRL Ears: Normal External Exam, Hearing Grossly Normal Ear Exam: Bilateral Ear: Auricle Normal Nose: Normal Inspection, Normal Mucosa, No Blood Throat/Mouth: Normal Inspection, Normal Oropharynx, Normal Voice, No Airway Compromise Head: Atraumatic, Normocephalic Neck: Normal Inspection, Supple, Non-Tender, Full Range of Motion Respiratory/Chest: Chest Non-Tender, Respiratory Distress, Decreased Breath Sounds (Diffusely), Wheezing, Accessory Muscle Use Cardiovascular: Normal Peripheral Pulses, Regular Rate, Rhythm, No JVD, No Murmur Peripheral Pulses: 2+: Radial (L), Radial (R), Dorsalis Pedis (L), Dorsalis Pedis (R) GI/Abdominal: Normal Bowel Sounds, Soft, Non-Tender, No Mass Back Exam: Normal Inspection, Full Range of Motion Extremities: Normal Inspection, Normal Range of Motion, Non-Tender, No Pedal Edema, Normal Capillary Refill Neurological: Alert, Oriented, CN II-XII Intact, No Motor/Sensory Deficits Skin Exam: Warm, Dry, Intact, Normal Color, No Rash EKG INTERPRETATION EKG Date: 06/16/19 Time: 05:58 Rhythm: NSR Rate (Beats/Min): 76 Hillman: LAD-Left Hillman Deviation P-Wave: Enlarged QRS: Other (IVCD) ST-T: Other (Left ventricular hypertrophy with repolarization abnormality) QT: Normal Comparison: No Change (No change from EKG performed on 11/23/2018.) Course - Vital Signs Last Recorded V/S: Last Vital Signs Temp 36.9 C 06/16/19 05:43 Pulse 77 06/16/19 06:00 Resp 36 H 06/16/19 06:00 BP 112/51 L 06/16/19 06:00 Pulse Ox 90 L 06/16/19 07:00 - Orders/Labs/Meds Orders: Active Orders 24 hr Category Date Time Status Admission Status [Patient Status] [ADT] Routine ADT 06/16/19 08:32 Active Patient Status Manage Transfer [TRANSFER] Routine ADT 06/16/19 08:34 Active Cardiac Monitoring [RC] .As Directed Care 06/16/19 08:32 Active EKG Documentation Completion [RC] ASDIRECTED Care 06/16/19 06:27 Active Oxygen Therapy Adult [Oxygen Therapy, ED] [RC] Care 06/16/19 05:45 Active ASDIRECTED RT Aerosol Therapy [RC] ASDIRECTED Care 06/16/19 06:30 Active Chest 1V Frontal [CR] Stat Exams 06/16/19 06:25 Taken CULTURE BLOOD [BC] Urgent Lab 06/16/19 07:15 Ordered CULTURE BLOOD [BC] Urgent Lab 06/16/19 07:40 Received Sodium Chloride 0.9% [Normal Saline] 1,000 ml Med 06/16/19 07:15 Active IV ASDIRECTED Sodium Chloride 0.9% [Saline Flush] Med 06/16/19 06:25 Active 10 ml FLUSH ASDIRECTED PRN Blood Culture x2 Reflex Set [OM.PC] Urgent Oth 06/16/19 07:15 Ordered Peripheral IV Insertion Adult [OM.PC] Routine Oth 06/16/19 06:25 Ordered EKG 12 Lead [EK] Routine Ther 06/16/19 06:25 Ordered Medication Orders Sodium Chloride (Normal Saline) 1,000 mls @ 999 mls/hr IV ASDIRECTED DIANE Last Admin: 06/16/19 07:33 Dose: 999 mls/hr Sodium Chloride (Saline Flush) 10 ml FLUSH ASDIRECTED PRN PRN Reason: Keep Vein Open Labs: Laboratory Tests 06/16/19 06/16/19 06/16/19 Range/Units 06:15 06:15 06:15 WBC 11.0 (4.5-12.0) X10-3/uL RBC 4.33 (4.30-5.75) x10(6)uL Hgb 12.9 L (13.5-17.8) g/dL Hct 39.4 (30.0-51.3) % MCV 91.1 (80-96) fL MCH 29.9 (27.7-33.6) pg MCHC 32.8 (32.2-35.4) g/dL RDW 13.6 (11.5-15.5) % Plt Count 309 (125-369) X10(3)uL MPV 7.5 (7.4-10.4) fL Add Manual Diff Yes Neutrophils % (Manual) 59 (46-82) % Band Neutrophils % 22 H* (0-6) % Lymphocytes % (Manual) 8 L (13-37) % Monocytes % (Manual) 5 (4-12) % Metamyelocytes % 6 H (0-0) % Toxic Granulation Few H (NOT SEEN) POC VBG pH (7.31-7.41) POC VBG pCO2 (41-51) mmHG POC VBG HCO3 (23-28) mmol/L POC VBG Total CO2 (24-29) mmol/L POC VBG Base Excess (-2-3) mmol/L Sodium 140 (135-145) mmol/L Potassium 4.8 D (3.5-5.3) mmol/L Chloride 101 D (100-110) mmol/L Carbon Dioxide 29 (21-32) mmol/L BUN 28 H D (7-18) mg/dL Creatinine 1.2 (0.70-1.30) mg/dL Est Cr Clr Drug Dosing 42.00 mL/min Estimated GFR (MDRD) 58 L (>60) BUN/Creatinine Ratio 23.3 H (9-20) Glucose 110 (80-116) mg/dL Lactic Acid (0.4-2.2) mmol/L Calcium 9.3 (8.6-10.2) mg/dL Magnesium (1.8-2.5) mg/dL Total Bilirubin 1.2 (0.1-1.3) mg/dL AST 19 D (5-25) IU/L ALT 17 D (12-36) U/L Alkaline Phosphatase 88 (56-112) IU/L Troponin I < 0.017 L (<0.017-0.056) ng/mL C-Reactive Protein 37.7 H* (0.5-0.9) mg/dL NT-Pro-B Natriuret Pep 250 (<=450) pg/mL Total Protein 6.8 (6.0-8.0) g/dL Albumin 3.0 L (3.2-4.6) g/dL Globulin 3.8 g/dL Albumin/Globulin Ratio 0.8 06/16/19 06/16/19 06/16/19 Range/Units 06:15 06:15 06:48 WBC (4.5-12.0) X10-3/uL RBC (4.30-5.75) x10(6)uL Hgb (13.5-17.8) g/dL Hct (30.0-51.3) % MCV (80-96) fL MCH (27.7-33.6) pg MCHC (32.2-35.4) g/dL RDW (11.5-15.5) % Plt Count (125-369) X10(3)uL MPV (7.4-10.4) fL Add Manual Diff Neutrophils % (Manual) (46-82) % Band Neutrophils % (0-6) % Lymphocytes % (Manual) (13-37) % Monocytes % (Manual) (4-12) % Metamyelocytes % (0-0) % Toxic Granulation (NOT SEEN) POC VBG pH 7.34 (7.31-7.41) POC VBG pCO2 49.0 (41-51) mmHG POC VBG HCO3 26.2 (23-28) mmol/L POC VBG Total CO2 28 (24-29) mmol/L POC VBG Base Excess 0 (-2-3) mmol/L Sodium (135-145) mmol/L Potassium (3.5-5.3) mmol/L Chloride (100-110) mmol/L Carbon Dioxide (21-32) mmol/L BUN (7-18) mg/dL Creatinine (0.70-1.30) mg/dL Est Cr Clr Drug Dosing mL/min Estimated GFR (MDRD) (>60) BUN/Creatinine Ratio (9-20) Glucose (80-116) mg/dL Lactic Acid 2.1 (0.4-2.2) mmol/L Calcium (8.6-10.2) mg/dL Magnesium 2.2 (1.8-2.5) mg/dL Total Bilirubin (0.1-1.3) mg/dL AST (5-25) IU/L ALT (12-36) U/L Alkaline Phosphatase (56-112) IU/L Troponin I (<0.017-0.056) ng/mL C-Reactive Protein (0.5-0.9) mg/dL NT-Pro-B Natriuret Pep (<=450) pg/mL Total Protein (6.0-8.0) g/dL Albumin (3.2-4.6) g/dL Globulin g/dL Albumin/Globulin Ratio Meds: Medications Generic Name Dose Route Start Last Admin Trade Name Freq PRN Reason Stop Dose Admin Sodium Chloride 1,000 mls @ 999 mls/hr 06/16/19 07:15 06/16/19 07:33 Normal Saline IV 999 mls/hr ASDIRECTED DIANE Administration Sodium Chloride 10 ml 06/16/19 06:25 Saline Flush FLUSH ASDIRECTED PRN Keep Vein Open Discontinued Medications Generic Name Dose Route Start Last Admin Trade Name Freq PRN Reason Stop Dose Admin Albuterol 2.5 mg 06/16/19 06:29 06/16/19 06:37 Proventil Neb Soln NEB 06/16/19 06:30 2.5 mg ONETIME ONE Administration Albuterol/Ipratropium 3 ml 06/16/19 06:29 06/16/19 06:37 Duoneb 3.0-0.5 Mg/3 Ml NEB 06/16/19 06:30 3 ml ONETIME ONE Administration Ceftriaxone Sodium 1 gm 06/16/19 07:45 06/16/19 07:46 Rocephin IVPUSH 06/16/19 07:46 1 gm ONETIME ONE Administration Azithromycin 500 mg/ Sodium 250 mls @ 250 mls/hr 06/16/19 07:31 06/16/19 07: 42 Chloride IV 06/16/19 08:30 250 mls/hr ONETIME ONE Administration Methylprednisolone Sodium Succinate 125 mg 06/16/19 06:30 06/16/19 06:37 Solu-Medrol IVPUSH 06/16/19 06:31 125 mg ONETIME ONE Administration - Radiology Interpretation Free Text/Narrative:: Portable chest x-ray shows left lower lobe infiltrate. - Re-Assessments/Exams Free Text/Narrative Re-Assessment/Exam: 06/16/19 07:15: Patient's labs and x-rays are consistent with some dehydration with left lower lobe pneumonia and respiratory failure with hypoxia. After the patient's nebulizer treatment, his air movement has improved. His O2 saturations were to 91% on 6 L/m via nasal cannula. The patient is breathing more comfortably. Rales were apparent in his left base and there were some wheezes apparent bilaterally. I will have her cultures drawn and I will treat the patient with Rocephin and Zithromax for community-acquired pneumonia. The patient relates to me that he would not want to be intubated or resuscitated in the event of a cardiopulmonary arrest or further deterioration of his respiratory status. The patient was also given Solu-Medrol 125 mg IV. The patient will need admission for IV antibiotic therapy, supplemental oxygen, nebulizer treatments, IV fluids and IV steroid treatment. He will need at least a 2 midnight hospital stay. I will discuss this with the nursing staff and with Dr. Pittman (if a bed is available) for admission. The patient and his daughter are in agreement with plans. 06/16/19 08:28: Patient's O2 saturations are now 95-96% on 6 L/m via nasal cannula. His breathing is much improved in that his work of breathing is much less and his respiratory rate has dropped to the 20s. He was actually asleep when I came into the room and awakens easily with normal mentation. His blood pressure is in the 110 systolic range as well. I discussed the patient's case with Dr. Pittman and he has agreed to admit the patient. The nursing staff have also informed me that a bed is available for the patient and staff are available to care for the patient. The patient will be admitted to the intensive care unit for now for close monitoring. Departure - Departure Time of Disposition: 08:30 Disposition: Admitted As Inpatient 64 Condition: Fair (Guarded) Clinical Impression: COPD with exacerbation Left lower lobe pneumonia Qualifiers: Pneumonia type: due to unspecified organism Qualified Code(s): J18.9 - Pneumonia, unspecified organism Respiratory failure with hypoxia Qualifiers: Chronicity: acute Qualified Code(s): J96.01 - Acute respiratory failure with hypoxia - Discharge Information Referrals: Lanre Chand MD [Primary Care Provider] - Sepsis Event Note - Focused Exam Vital Signs: Vital Signs Temp Pulse Resp BP Pulse Ox Pulse Ox Pulse Ox 06/16/19 07:00 90 L 06/16/19 06:20 94 L 06/16/19 06:05 82 L 06/16/19 06:00 77 36 H 112/51 L 80 L 06/16/19 05:52 80 L 06/16/19 05:45 72 L 06/16/19 05:43 36.9 C 75 40 H 134/92 H 67 L Date Exam was Performed: 06/16/19 Time Exam was Performed: 08:36 - My Orders Last 24 Hours: My Active Orders 06/16/19 05:45 Oxygen Therapy Adult [Oxygen Therapy, ED] [RC] ASDIRECTED 06/16/19 06:25 Chest 1V Frontal [CR] Stat Sodium Chloride 0.9% [Saline Flush] 10 ml FLUSH ASDIRECTED PRN Peripheral IV Insertion Adult [OM.PC] Routine EKG 12 Lead [EK] Routine 06/16/19 06:27 EKG Documentation Completion [RC] ASDIRECTED 06/16/19 06:30 RT Aerosol Therapy [RC] ASDIRECTED 06/16/19 07:15 CULTURE BLOOD [BC] Urgent Sodium Chloride 0.9% [Normal Saline] 1,000 ml IV ASDIRECTED Blood Culture x2 Reflex Set [OM.PC] Urgent 06/16/19 07:40 CULTURE BLOOD [BC] Urgent 06/16/19 08:32 Admission Status [Patient Status] [ADT] Routine Cardiac Monitoring [RC] .As Directed 06/16/19 08:34 Patient Status Manage Transfer [TRANSFER] Routine - Assessment/Plan Last 24 Hours: My Active Orders 06/16/19 05:45 Oxygen Therapy Adult [Oxygen Therapy, ED] [RC] ASDIRECTED 06/16/19 06:25 Chest 1V Frontal [CR] Stat Sodium Chloride 0.9% [Saline Flush] 10 ml FLUSH ASDIRECTED PRN Peripheral IV Insertion Adult [OM.PC] Routine EKG 12 Lead [EK] Routine 06/16/19 06:27 EKG Documentation Completion [RC] ASDIRECTED 06/16/19 06:30 RT Aerosol Therapy [RC] ASDIRECTED 06/16/19 07:15 CULTURE BLOOD [BC] Urgent Sodium Chloride 0.9% [Normal Saline] 1,000 ml IV ASDIRECTED Blood Culture x2 Reflex Set [OM.PC] Urgent 06/16/19 07:40 CULTURE BLOOD [BC] Urgent 06/16/19 08:32 Admission Status [Patient Status] [ADT] Routine Cardiac Monitoring [RC] .As Directed 06/16/19 08:34 Patient Status Manage Transfer [TRANSFER] Routine
[2019-06-16] MEDS ORDERED: Sodium Chloride 0.9% 10 ML Syringe FLUSH PRN (06:25)
[2019-06-16] MEDS ORDERED: Albuterol/Ipratropium 3.0-0.5 MG/3 ML Neb Soln NEB ONE (06:29)
[2019-06-16] MEDS ORDERED: Albuterol 0.083% 2.5 MG/3 ML Neb Soln NEB ONE (06:29)
[2019-06-16] MEDS ORDERED: methylPREDNISolone Sodium Succinate 125 MG/2 ML SDV IVPUSH ONE (06:30)
[2019-06-16] MEDS ORDERED: Sodium Chloride 0.9% 1,000 ML IV SCH (07:15)
[2019-06-16] MEDS ORDERED: Azithromycin 500 MG in Sodium Chloride 0.9% 250 ML IV ONE (07:31)
[2019-06-16] MEDS ORDERED: cefTRIAXone 2 GM Vial IVPUSH ONE (07:31)
[2019-06-16] MEDS ORDERED: cefTRIAXone 1 GM Vial IVPUSH ONE (07:45)
--- NOTE | 2019-06-16 10:01 | CR ---
INDICATION: Difficulty breathing, cough. CHEST, ONE VIEW FRONTAL: Portable AP upright view of the chest 06/16/19 was compared with 11/23/18 and revealed appearance of continuing infiltration or recurrent infiltration at the left lung base and lower middle lung field. Findings may represent a chronic inflammatory disease or recurrent pneumonia or even neoplasia. The heart appeared enlarged. The aorta is tortuous with some calcification in the arch. Elevated right hemidiaphragm is again noted most likely anatomic. A subpulmonic effusion is difficult to entirely exclude however. Overlying EKG leads are noted. Pulmonary vasculature may be slightly prominent in the upper lung ingram, raising question of mild or early CHF additionally. IMPRESSION: 1. Parenchymal changes at the left lower lung field appear to be either chronic or recurrent compared with the previous study, as they appear similar to the previous examination. A portion of these changes could be on the basis of pneumonia, fibrosis or even neoplasia. 2. ASHD with cardiomegaly and possible minimal or early CHF. 3. Elevated right hemidiaphragm most likely anatomic, but makes it difficult to exclude a subpulmonic effusion-right lateral decubitus view may be helpful for further evaluation as felt to be clinically necessary. MTDD
[2019-06-16] MEDS ORDERED: PRAMOXINE HCL TP PRN (10:47)
[2019-06-16] MEDS ORDERED: Docusate Sodium 250 MG Cap PO PRN (10:47)
[2019-06-16] MEDS ORDERED: Albuterol 8 GM Inhaler INH PRN (10:47)
[2019-06-16] MEDS: Piperacillin/Tazobactam 3.375 GM in Sodium Chloride 0.9% 50 ML IV SCH ×3 (11:13→22:24)
[2019-06-16] MEDS: metroNIDAZOLE/Normal Saline 500 MG in Premix Bag 1 BAG IV SCH ×2 (11:53→19:20)
--- NOTE | 2019-06-16 12:17 | HP ---
ADMISSION DATE: 06/16/2019 CHIEF COMPLAINT: Pneumonia. HISTORY OF PRESENT ILLNESS: Mr. Carmona is an 79-year-old man from [place], [place] with a history of COPD, hypertension, hyperlipidemia, history of TIA, history of stroke, and old polio. According to the patient, he was in his baseline state of health which included the nightly use of oxygen. Mr. Carmona underwent EGD for dyspepsia-type symptoms by Dr. Sheldon on 06/12/2019. He was found to have inflammation consistent with monilial esophagitis. He was started on oral medication. He said the next day, he did not feel very well; and then yesterday, he began to have fever, chills, sweats, though slowly worsened over the day until this morning, he came into the emergency room where he was evaluated by Dr. Wall and found to have a left lower lobe pneumonia. He is now admitted for inpatient treatment. The patient does describe extreme shortness of breath, chest pain on the left lateral chest wall area, weakness, fever, and chills. He has not had pneumonia before, but states he has COPD. He is not sure why he has it because he has never been a smoker, he did work in a [employer] for years, however. PAST MEDICAL HISTORY: History of polio with left-sided weakness. He underwent a surgery that transposed muscle from a leg to his abdomen at age 13 at [facility] in [facility]. He says he was able to recover enough to do his work to be a [employer] and later worked in a grain elevator. Other past history includes hypertension, GERD, a history of anxiety, and in November of 2016, he had admission for heat exhaustion. CT of the head done at that time for headache showed no sign of intercerebral abnormalities. MEDICATIONS: 1. Verapamil ER 120 mg daily. 2. Simvastatin 40 mg at bedtime. 3. Sertraline 50 mg daily. 4. Sarna lotion p.r.n. for dry skin. 5. Pantoprazole 40 mg daily. 6. Losartan 50 mg daily. 7. Guaifenesin p.r.n. 8. Gabapentin 300 mg at bedtime. 9. Advair 250/50 one puff b.i.d. 10.Diflucan 150 mg b.i.d. 11.Iron sulfate 1 tablet every 48 hours. 12.Docusate 250 mg t.i.d. 13.Plavix 75 mg daily. 14.Calcium with D one b.i.d. 15.Aspirin 81 mg daily. 16.Ventolin HFA p.r.n. 17.Tylenol p.r.n. ALLERGIES: None. HABITS: Nonsmoker and nondrinker. FAMILY AND SOCIAL HISTORY: The patient lives in [place]. He lists as a next of kin, daughter Antwan and son Obinna, both from [place]. REVIEW OF SYSTEMS: GENERAL: No seizure, syncope, or recent significant weight change. SKIN: Negative for rash. He does report chronic dry skin. HEENT: No recent changes in hearing or vision. No sore throat. See HPI. RESPIRATORY: No chest pain. HEART: There are no anginal symptoms. GASTROINTESTINAL: No abdominal pain, nausea, or diarrhea. SKIN: No swelling or skin rash. EXTREMITIES: No joint inflammation. NEUROLOGIC: No mood instability or temperature intolerance. PHYSICAL EXAMINATION: GENERAL: He is alert, comfortable, and a good historian. VITAL SIGNS: Blood pressure 112/51, pulse 77 and regular, respirations 36, O2 saturation 80% on 6 L nasal cannula oxygen, weight 143 pounds. SKIN: Anicteric. Warm and dry. No rash. He has dryness over his lower extremities. HEENT: Shows mouth to be dry. LUNGS: Good air movement on the right side. He has significant decreased breath sounds at the left base with slight rales. HEART: Regular. No murmur or gallop heard. ABDOMEN: Normal bowel sounds. Soft. He has an old healed scar across the lower abdomen. No tenderness or masses. EXTREMITIES: Show no edema. I could not feel pedal pulses. LABORATORY DATA: White count was 7400, hemoglobin 14 with significant left shift and 22 bands. Electrolytes normal. BUN 28, creatinine 1.2. Troponin negative. CRP 37.7. ProBNP normal. Chest x-ray shows still a left lower lobe infiltrate with likely effusion and changes consistent with COPD. ASSESSMENT: 1. Left lower lobe pneumonia, possible aspiration related to EGD. 2. Chronic obstructive pulmonary disease with nocturnal oxygen. 3. Gastroesophageal reflux disease with esophagitis. 4. Hyperlipidemia. 5. Chronic essential hypertension. 6. Anxiety. 7. History of old polio. 8. On Plavix for history of transient ischemic attack. PLAN: He is admitted to the hospital. We will keep him on oxygen, provide pulmonary toilet, IV antibiotics, and I anticipate a 48 to 72 hour acute hospital stay with plans for discharge home after. /[id number] Wally AC/ABDULLAHI
[2019-06-16] MEDS: Sodium Chloride 0.9% 1,000 ML IV SCH (13:00)
[2019-06-16] MEDS ORDERED: Acetaminophen 325 MG Tab PO PRN (13:24)
[2019-06-16] MEDS: Formoterol/Mometasone 200-5 MCG 8.8 GM Inhaler IH SCH (20:08)
[2019-06-16] MEDS: Fluconazole 150 MG Tab PO SCH (20:09)
[2019-06-16] MEDS: guaiFENesin 600 MG Tab.ER PO SCH (20:10)
[2019-06-16] MEDS: Gabapentin 300 MG Cap PO SCH (20:11)
[2019-06-17] MEDS: metroNIDAZOLE/Normal Saline 500 MG in Premix Bag 1 BAG IV SCH ×3 (03:34→19:18)
[2019-06-17] MEDS: Piperacillin/Tazobactam 3.375 GM in Sodium Chloride 0.9% 50 ML IV SCH ×4 (04:51→22:45)
[2019-06-17] MEDS: Pantoprazole 40 MG Tab.CR PO SCH (05:31)
[2019-06-17] MEDS: Sodium Chloride 0.9% 1,000 ML IV SCH ×3 (05:57→22:27)
[2019-06-17] MEDS: Sertraline 50 MG Tab PO SCH (08:58)
[2019-06-17] MEDS: Clopidogrel 75 MG Tab PO SCH (08:58)
[2019-06-17] MEDS: Aspirin 325 MG Tab.EC PO SCH (08:58)
[2019-06-17] MEDS: guaiFENesin 600 MG Tab.ER PO SCH ×2 (08:58→20:36)
[2019-06-17] MEDS: Losartan 50 MG Tab PO SCH (08:58)
[2019-06-17] MEDS: Fluconazole 150 MG Tab PO SCH (08:59)
[2019-06-17] MEDS: Formoterol/Mometasone 200-5 MCG 8.8 GM Inhaler IH SCH ×2 (08:59→20:34)
[2019-06-17] MEDS ORDERED: Aspirin 81 MG Tab.Chew PO SCH (09:00)
[2019-06-17] MEDS ORDERED: Verapamil 120 MG Tab.ER PO SCH (09:15)
--- NOTE | 2019-06-17 09:17 | PN ---
DATE SEEN: 06/17/2019 HISTORY: Clint is an 79-year-old man who was admitted yesterday with pneumonia. He has underlying chronic obstructive pulmonary disease and was having a great deal of shortness of breath. Chest x-ray showed left lower lobe pneumonia and cardiomegaly. Clint states that he feels better this morning. He is less short of breath. He is having no chest pain. He is also on Diflucan 150 mg twice a day for monilial esophagitis. For this reason, his verapamil and Plavix are being held. PHYSICAL EXAMINATION: VITAL SIGNS: Blood pressure 148/59, pulse 56 and regular, respirations 18, O2 saturation 97% on 1 L nasal cannula oxygen, temperature 97.7. SKIN: Shows no rash. HEENT: Mouth is dry. LUNGS: Have good air movement in the upper lung ingram, but distant breath sounds in the bases. He has fine rales at both bases. HEART: Regular without murmur or gallop. ABDOMEN: Soft. EXTREMITIES: Show no edema. LABORATORY DATA ON ADMISSION: Showed hemoglobin of 12.9, white count 11,000 with marked left shift of 59 segs, 22 bands, 8 lymphs, 6 monos, and CRP was 37. ASSESSMENT: 1. Left lower lobe pneumonia. 2. Monilial esophagitis. 3. Chronic obstructive pulmonary disease. 4. Chronic essential hypertension. 5. LVH on EKG. PLAN: We will continue his IV antibiotics today. Recheck a chest x-ray and labs in the morning. I anticipate at least another 24 to 48 hours of acute hospital stay followed by plans for return to his home once improved. We will continue to provide palliative care measures for his underlying chronic obstructive pulmonary disease and heart disease. /[id number] YASHIRA/ABDULLAHI
[2019-06-17] MEDS ORDERED: Diltiazem 25 MG/5 ML SDV IVPUSH ONE (10:00)
[2019-06-17] MEDS ORDERED: Furosemide 40 MG/4 ML VIAL IVPUSH ONE (10:03)
[2019-06-17] MEDS ORDERED: Diltiazem IR 60 MG Tab PO SCH (16:00)
[2019-06-17] MEDS ORDERED: Diltiazem IR 30 MG Tab ONE (16:33)
[2019-06-17] MEDS ORDERED: Nystatin Susp 100,000 Unit/ML 5 ML UD Cup ONE (16:36)
[2019-06-17] MEDS: Nystatin Susp 100,000 Unit/ML 5 ML UD Cup PO SCH ×2 (16:39→20:36)
[2019-06-17] MEDS: Diltiazem IR 30 MG Tab PO SCH ×2 (17:24→22:29)
[2019-06-17] MEDS: Gabapentin 300 MG Cap PO SCH (20:36)
[2019-06-18] MEDS: metroNIDAZOLE/Normal Saline 500 MG in Premix Bag 1 BAG IV SCH (03:37)
[2019-06-18] MEDS: Piperacillin/Tazobactam 3.375 GM in Sodium Chloride 0.9% 50 ML IV SCH (04:42)
[2019-06-18] MEDS: Diltiazem IR 30 MG Tab PO SCH (04:43)
[2019-06-18] MEDS: Pantoprazole 40 MG Tab.CR PO SCH (06:03)
[2019-06-18] MEDS ORDERED: Nitroglycerin 0.4 MG Tab.SL SL PRN (07:51)
[2019-06-18] MEDS: Formoterol/Mometasone 200-5 MCG 8.8 GM Inhaler IH SCH ×2 (09:26→20:05)
[2019-06-18] MEDS: Losartan 50 MG Tab PO SCH (09:30)
[2019-06-18] MEDS: Aspirin 325 MG Tab.EC PO SCH (09:31)
[2019-06-18] MEDS: guaiFENesin 600 MG Tab.ER PO SCH ×2 (09:31→20:05)
[2019-06-18] MEDS: Sertraline 50 MG Tab PO SCH (09:31)
[2019-06-18] MEDS: Nystatin Susp 100,000 Unit/ML 5 ML UD Cup PO SCH ×3 (09:34→20:05)
[2019-06-18] MEDS: Clopidogrel 75 MG Tab PO SCH (09:34)
[2019-06-18] MEDS: Gabapentin 300 MG Cap PO SCH (20:06)
[2019-06-19] MEDS ORDERED: hydrALAZINE 20 MG/ML SDV IVPUSH ONE (00:11)
[2019-06-19] MEDS ORDERED: amLODIPine 10 MG Tab PO ONE (03:22)
[2019-06-19] MEDS ORDERED: Labetalol 20 MG/4 ML Syringe IVPUSH ONE (05:09)
[2019-06-19] MEDS: Losartan 50 MG Tab PO SCH (08:27)
[2019-06-19] MEDS: Aspirin 325 MG Tab.EC PO SCH (08:28)
[2019-06-19] MEDS: guaiFENesin 600 MG Tab.ER PO SCH (08:28)
[2019-06-19] MEDS: Formoterol/Mometasone 200-5 MCG 8.8 GM Inhaler IH SCH (08:28)
[2019-06-19] MEDS: Sertraline 50 MG Tab PO SCH (08:29)
[2019-06-19] MEDS: Nystatin Susp 100,000 Unit/ML 5 ML UD Cup PO SCH (08:38)
[2019-06-19 08:41] VITALS: BP 147/67; PULSE 63
[2019-06-19] MEDS: Clopidogrel 75 MG Tab PO SCH (08:41)
--- NOTE | 2019-06-19 08:44 | PN ---
DATE SEEN: 06/18/2019 HISTORY: Mr. Carmona is an 79-year-old man from [place], [place], who was admitted on 06/16/2019 with left lower lobe pneumonia. On admission, he was started on IV Zosyn and metronidazole because of the current concern for aspiration. He had previously had EGD, which showed monilial esophagitis and was started on Diflucan [address] Sheldon[address] Because of potential drug interactions, his Plavix was held and his verapamil was held. The patient continued his nebulizers and inhalers, and he subsequently went into rapid atrial fibrillation. This was treated yesterday with IV diltiazem and discontinuation of his sympathomimetic nebulizers. He slowed down, and he was switched to oral Cardizem. He converted back to sinus rhythm overnight. He is examined this morning in his bed. He is up, sitting on the edge, feeling active, feeling healthy. He is alert, but hard of hearing. He is anxious to get up moving. PHYSICAL EXAMINATION: VITAL SIGNS: Blood pressure 164/55, pulse 47 and regular, respirations 18, O2 saturation 92% on 1 L nasal cannula, and temperature 97. SKIN: Anicteric. Warm and dry. No sign of rash or trauma. Mouth is dry. LUNGS: Clear in the upper lung ingram. He has distant breath sounds, and he is diminished in both bases with slight rales in the left. HEART: Regular. No murmur heard. ABDOMEN: Soft and nontender. EXTREMITIES: No edema. LABORATORY DATA: White count 8800, hemoglobin 11.2. Electrolytes normal. Creatinine 0.8. Troponin negative. CRP decreased from 37 on the down to 29 this morning. Repeat chest x-ray is pending. ASSESSMENT: 1. Left lower lobe pneumonia. 2. Monilial esophagitis. 3. History of paroxysmal supraventricular tachycardia. 4. Episode of atrial fibrillation, now resolved. 5. Anxiety and depression. PLAN: We will discontinue his oral Cardizem and return him to his regular verapamil. We will convert from IV to oral antibiotics today, increase his activity, and hope to discharge within 24 hours. /[id number] RO/MODL
[2019-06-19] MEDS ORDERED: Verapamil 120 MG Tab.ER PO SCH (09:00)
[2019-06-19] MEDS ORDERED: Losartan 50 MG Tab PO SCH (09:00)
--- NOTE | 2019-06-19 09:41 | CR ---
INDICATION: Pneumonia. CHEST, 2 VIEWS: AP and lateral views of the chest, 06/18/19, were compared with 06/16/19 and 11/23/18. There appears to be decreased but continued infiltrate at the left lung base with new pleural parenchymal changes at the right lung base. Findings are compatible with bibasilar pneumonia and pleuritis, more severe on the right than on the left at this time. Previous chest x-ray showed no definite pneumonia at the right lung base with more extensive infiltrate at the left lung base than is present now. Findings may be on the basis of a process such as aspiration pneumonia and should be correlated clinically. The heart size is difficult to evaluate and may be slightly enlarged. The aorta is tortuous with calcification in the arch and descending portion. Overlying EKG leads are noted. IMPRESSION: 1. Bibasilar pneumonia and pleuritis, new on the right and decreased on the left. 2. ASHD. MTDD
--- NOTE | 2019-06-19 15:19 | DISCH ---
DISCHARGE DATE: 06/19/2019 PRIMARY FINAL DIAGNOSIS: Bilateral pneumonia. OTHER DIAGNOSES: Episode of acute atrial fibrillation, arteriosclerotic heart disease, chronic essential hypertension, esophageal candidiasis, depression, and history of paroxysmal supraventricular tachycardia. OPERATIONS: None. COMPLICATIONS: The patient was started on Diflucan 150 mg b.i.d. because of the high potential for drug interactions. His Plavix and verapamil were held. He subsequently went into rapid atrial fibrillation and was converted with IV, then oral Cardizem. The Diflucan was discontinued and replaced with nystatin suspension. He tolerated this well, and his verapamil and Plavix were resumed. By 06/19/2019, he was improved enough for discharge. He is sent home in improved condition to continue medications as follows. 1. Nystatin suspension 10 mL t.i.d. x10 days. 2. Verapamil ER 120 mg daily. 3. Simvastatin 40 mg at bedtime. 4. Sarna lotion p.r.n. 5. Protonix 40 mg daily. 6. Losartan 50 mg b.i.d. 7. Gabapentin 300 mg at bedtime. 8. Iron sulfate 325 mg every 48 hours. 9. Calcium 1 b.i.d. 10.Aspirin 325 mg daily. 11.Sertraline 50 mg daily. 12.Nitroglycerin p.r.n. 13.Guaifenesin 600 mg b.i.d. 14.Gabapentin 300 mg at bedtime. 15.Advair inhaler 250/50 one puff b.i.d. 16.Docusate 250 mg t.i.d. 17.Ventolin HFA p.r.n. 18.Tylenol p.r.n. PLAN: He is asked to have a followup appointment with [facility]am[facility] to recheck his lungs in 7 to 10 days. He will also need to have follow up with Dr. Sheldno regarding his esophageal candidiasis and his inability to take the oral Diflucan. He is to call should there be questions or problems prior to that time. He will remain on oxygen which he has at home and will continue to use his Acapella respiratory therapy device. /[id number] YASHIRA/ABDULLAHI
== END 2019-06-19 11:55 | disposition home or self-care (01) | DRG 194 ==
LOC: FB.ED 05:43 → UNDOADMIN 08:32 → FB.ICU 08:32 → FB.MS 06-18 09:31
PROVIDERS: ADMIT Emergency Medicine; ATTEND Family Medicine
DX: J18.9 Pneumonia, unspecified organism (principal); B37.81 Candidal esophagitis; J44.1 Chronic obstructive pulmonary disease with (acute) exacerbation; J96.01 Acute respiratory failure with hypoxia; J44.0 Chronic obstructive pulmonary disease with (acute) lower respiratory infection; I48.91 Unspecified atrial fibrillation; I70.0 Atherosclerosis of aorta; I25.10 Atherosclerotic heart disease of native coronary artery without angina pectoris; I10 Essential (primary) hypertension; F32.9 Major depressive disorder, single episode, unspecified; G25.81 Restless legs syndrome; E78.5 Hyperlipidemia, unspecified; E53.8 Deficiency of other specified B group vitamins; Z79.02 Long term (current) use of antithrombotics/antiplatelets; K21.9 Gastro-esophageal reflux disease without esophagitis; F41.9 Anxiety disorder, unspecified; K21.0 Gastro-esophageal reflux disease with esophagitis; E78.00 Pure hypercholesterolemia, unspecified; M19.90 Unspecified osteoarthritis, unspecified site; M17.11 Unilateral primary osteoarthritis, right knee; M19.011 Primary osteoarthritis, right shoulder; E53.9 Vitamin B deficiency, unspecified; I51.7 Cardiomegaly; Z99.81 Dependence on supplemental oxygen; Z86.73 Personal history of transient ischemic attack (TIA), and cerebral infarction without residual deficits; Z79.899 Other long term (current) drug therapy; Z79.82 Long term (current) use of aspirin; Z79.52 Long term (current) use of systemic steroids
CPT/HCPCS: 36415; 71045; 71046; 80053; 80069; 82803; 83605; 83735; 83880; 84484; 85025; 86140; 87040; 93005; 93010; 94640; 94760; 96365; 96375; 99284; 99285-25; A9270-GY; J0360; J0456; J0696; J1940; J2543; J2930; J3490; J7030; J7050; J7620-GY

== ENCOUNTER 2019-10-05 09:47 | Emergency (ER) | payer MEDICARE ==
[2019-10-05] MEDS: Sodium Chloride 0.9% 10 ML Syringe FLUSH PRN ×2 (09:50→10:40)
[2019-10-05] MEDS ORDERED: Ondansetron 4 MG/2 ML SDV IVPUSH ONE (10:26)
[2019-10-05] MEDS ORDERED: Lidocaine 1% 20 ML MDV INJECT ONE (10:28)
[2019-10-05] MEDS ORDERED: Lactated Ringers 1,000 ML IV SCH ×2 (10:30→13:15)
[2019-10-05] MEDS ORDERED: Iopamidol 755 Mg/ML 100 ML Bottle IV ONE (10:34)
[2019-10-05] MEDS: Lactated Ringers 1,000 ML IV SCH ×2 (10:40→11:45)
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
[2019-10-05] MEDS ORDERED: Diphtheria,Pertussis(Acell),Tetanus Vaccine 0.5 ML SDV IM ONE (12:14)
[2019-10-05] MEDS ORDERED: Norepinephrine 4 MG in Dextrose 5% in Water 246 ML IV SCH ×2 (12:15)
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
[2019-10-05] MEDS ORDERED: Sodium Chloride 0.9% 1,000 ML IV SCH (13:00)
[2019-10-05] MEDS ORDERED: Sodium Chloride 0.9% 250 ML IV SCH (13:15)
[2019-10-05 17:29] VITALS: BP 154/102; PULSE 117
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
== END 2019-10-05 13:48 ==
LOC: FB.ED 09:47
DX: S22.32XA Fracture of one rib, left side, initial encounter for closed fracture (principal); S81.812A Laceration without foreign body, left lower leg, initial encounter; E78.00 Pure hypercholesterolemia, unspecified; I10 Essential (primary) hypertension; J44.9 Chronic obstructive pulmonary disease, unspecified; K21.9 Gastro-esophageal reflux disease without esophagitis; M19.90 Unspecified osteoarthritis, unspecified site; G56.00 Carpal tunnel syndrome, unspecified upper limb; G25.81 Restless legs syndrome; F41.9 Anxiety disorder, unspecified; Z79.02 Long term (current) use of antithrombotics/antiplatelets; Z86.73 Personal history of transient ischemic attack (TIA), and cerebral infarction without residual deficits; Z79.899 Other long term (current) drug therapy; Z99.81 Dependence on supplemental oxygen; Y92.481 Parking lot as the place of occurrence of the external cause; Z23 Encounter for immunization; V53.6XXA Passenger in pick-up truck or van injured in collision with car, pick-up truck or van in traffic accident, initial encounter
CPT/HCPCS: 36415; 36430; 51702; 70450; 71045; 71250; 72125; 72170; 73590-RT; 74176; 76705; 80053; 81001; 85025; 85610; 85730; 86850; 86900; 86901; 86920; 86922; 90471; 90715; 93005; 96361; 96365; 96375; 99285-25; J2001; J2405; J7060; J7120; P9016